=== PATIENT | female | born 1955 | race Caucasian/White ===

== ENCOUNTER 2019-12-24 11:31 | Outpatient (CLI) | payer MEDICARE, OTHER, SELFPAY ==
[2019-12-24 11:51] LABS: Basophils Absolute Auto 0.1 K/mm3 (0.0-0.1); Eosinophils Absolute Auto 0.2 K/mm3 (0-0.3); Eosinophils Percent Auto 2.8 % (0-4.4); Hematocrit 43.6 % (37.0-47.0); Hemoglobin 14.6 g/dL (12.0-15.0); Lymphocytes Absolute Auto 2.07 K/mm3 (0.9-3.2); Lymphocytes Percent Auto 33.9 % (18.3-44.2); Mean Corpuscular HGB Conc 33.5 g/dl (32-36); Mean Corpuscular Hemoglobin 32.4 pg (26-34); Mean Corpuscular Volume 96.9 fl (80-100); Mean Platelet Volume 9.4 fl (7.4-10.4); Monocytes Absolute Auto 0.6 K/mm3 (0.1-0.6); Monocytes Percent Auto 10.3 % (2.6-8.5); Neutrophils Absolute Auto 3.2 K/mm3 (1.3-6.7); Platelet Count Result 351 k/mm3 (150-375); Red Cell Distribution Width 13.1 % (11.5-14.5); White Blood Count 6.1 K/mm3 (4.5-10.0)
[2019-12-24 17:01] LABS: Alanine Aminotransferase 17 U/L (4-35); Albumin Level 4.5 g/dL (3.5-5.1); Alkaline Phosphatase 67 U/L (38-126); Aspartate Amino Transferase 24 U/L (14-36); Bilirubin,Total 0.1 mg/dL (0.2-1.3); Blood Urea Nitrogen 23 mg/dL (7-17); Calcium 9.4 mg/dL (8.4-10.2); Carbon Dioxide 29 mmol/L (22-30); Chloride 104 mmol/L (98-107); Estimated Glomerular Filt Rate > 60; Glucose 104 mg/dL (65-105); Potassium 4.4 mmol/L (3.4-5.0); Sodium 138 mmol/L (137-145)
== END 2019-12-24 11:32 | disposition home or self-care (01) ==
PROVIDERS: PCP Family Medicine; Visit Provider Internal Medicine Hematology & Oncology
DX: C50.411 Malignant neoplasm of upper-outer quadrant of right female breast (principal); Z17.0 Estrogen receptor positive status [ER+]
CPT/HCPCS: 36415; 80053; 85025

== ENCOUNTER 2020-01-17 08:13 | Outpatient (CLI) | payer MEDICARE, OTHER, SELFPAY ==
--- NOTE | ~2020-01-17 | MM_ITS ---
EXAMINATION: MM screening reva BI w sam HISTORY: Screening mammogram, history of right breast cancer TECHNIQUE: Craniocaudal and mediolateral oblique 3-D tomosynthesis images were obtained and synthetic 2-D images were generated. CAD analysis was submitted and interpreted. COMPARISON: 01/14/2019, 07/20/2018, 01/08/2018, 05/31/2017 BREAST PARENCHYMAL COMPOSITION: There are scattered areas of fibroglandular density. FINDINGS: Stable lumpectomy changes are present in the right breast. Also seen is a stable low-densit y mass in the lower inner left breast. There is no evidence of suspicious mass, calcification, or arc hitectural distortion to suggest malignancy in either breast. There has been no suspicious interval c hange. IMPRESSION: 1. No mammographic evidence of malignancy. 2. Recommend routine screening mammography in one year. BI-RADS Category 2: Benign finding(s). Reviewed, dictated and finalized at location A.
== END 2020-01-17 08:14 | disposition home or self-care (01) ==
LOC: ANHIMG 08:16
PROVIDERS: PCP Family Medicine; Visit Provider Internal Medicine Hematology & Oncology
DX: Z12.31 Encounter for screening mammogram for malignant neoplasm of breast (principal)
CPT/HCPCS: 77063; 77067

== ENCOUNTER 2020-01-18 10:08 | Emergency (ER) | payer MEDICARE, OTHER, SELFPAY ==
[2020-01-18 10:16] VITALS: BP 139/76; PULSE 89; RESP 20; TEMP 36.6; O2SAT 99
--- NOTE | 2020-01-18 10:16 | ED.FEMALEGU ---
HPI - Female Genitourinary General Chief complaint: Urogenital-Female Stated complaint: POS UTI Time Seen by Provider: 01/18/20 10:22 Source: patient and RN notes reviewed Mode of arrival: ambulatory Limitations: no limitations History of Present Illness HPI Narrative: 64-year-old female who presents to [facility] care with complaints of 3-day history of pain burning and urgency with urination. Patient states she has not taken any khov-mrh-ycvid[place] Azo, has increased oral water intake with no improvement in symptoms. Patient states no history of kidney stones in past, reports last known UTI June of 2017. Patient denies any known fevers, chills or sweats, has some suprapubic tenderness but denies any flank pain MD elicited complaint: dysuria, UTI and pelvic pain Pertinent past history: other (past UTI) Onset (ago): day(s) (3) Location of symptoms: suprapubic and urethra Severity: moderate Severity scale (1-10): 4 Quality of pain: aching Consistency: constant Vaginal discharge: none Vaginal bleeding: none Urinary symptoms: Dysuria, Urgency and Frequency Exacerbating factors: urination Relieving factors: none Associated symptoms: abdominal pain (suprapubic pressure) Treatment prior to arrival: other (increase fluids) Patient : No Related Data Home Medications Medication Instructions Recorded Confirmed anastrozole 1 mg tablet 1 mg PO DAILY 07/16/19 01/18/20 Allergies Allergy/AdvReac Type Severity Reaction Status Date / Time No Known Allergies Allergy Verified 07/16/19 13:58 Review of Systems Review of Systems: Narrative: CONSTITUTIONAL: Denies fever, chills, or sweats. EYES: Denies visual changes, redness, or discharge. ENT: Denies rhinorrhea, congestion, sore throat, or otalgia. CARDIOVASCULAR: Denies chest pain, palpitations, or edema. RESPIRATORY: Denies cough or dyspnea. GASTROINTESTINAL: states some suprapubic abdominal pain, no nausea, vomiting, or diarrhea. GENITOURINARY: Positive dysuria or hematuria. SKIN: Denies rash or itching. MUSCULOSKELETAL: Denies back pain, joint pain, or myalgia. NEUROLOGIC: Denies headache, numbness, or weakness. PSYCHIATRIC: Denies anxiety or depression. All systems reviewed & are unremarkable except as noted in HPI and below PMFSH Past Medical History Medical History Breast cancer Surgical History Surgical History History of lumpectomy 2017 History of total right hip replacement 2017 Hx of removal of ovary 1989 Family History Family History Mother Family history of thyroid disease Father Family history of blood dyscrasia Social History Social History Smoking status: Light tobacco smoker Second hand tobacco smoke exposure: Yes Alcohol intake: current Additional living arrangements comments: Rigoberto Roche Gender identity (if verbalized by the patient): Female Comments At time of signature, agree with nursing past medical, surgical, social and family history. There is no relevant family history pertinent to the presenting complaint Exam Narrative: Exam Narrative: GENERAL: Well-appearing, well-nourished, and in no acute distress. HEAD: Normocephalic, atraumatic. EYES: PERRLA and EOMI. ENT: Nares clear, no rhinorrhea or epistaxis. Mucous membranes moist. NECK: Supple.no lymphadenopathy CHEST: Clear to auscultation. No respiratory distress. HEART: Regular rate and rhythm. No murmur heard. Normal peripheral pulses. ABDOMEN: Soft,tender to suprapubic abdomen, nondistended, normal active bowel sounds. EXTREMITIES: Normal range of motion. No edema. SKIN: Warm, dry, no rash. NEURO: No focal deficits. Alert and oriented x3. Course Vital Signs Vital signs: Vital Signs Temperature 36.6 C 01/18/20 10:16 Pulse Rate 89 07
== END 2020-01-18 10:42 | disposition home or self-care (01) ==
PROVIDERS: Emergency Provider Registered Nurse; PCP Family Medicine
DX: N39.0 Urinary tract infection, site not specified (principal); F17.200 Nicotine dependence, unspecified, uncomplicated; Z85.3 Personal history of malignant neoplasm of breast
CPT/HCPCS: 87077; 87086; 87088; 87186; 99213; G0463

== ENCOUNTER 2020-07-13 09:50 | Outpatient (CLI) | payer MEDICARE, SELFPAY ==
[2020-07-13 10:11] LABS: Basophils Absolute Auto 0.1 K/mm3 (0.0-0.1); Basophils Percent Auto 0.7 % (0.2-1.2); Eosinophils Absolute Auto 0.1 K/mm3 (0-0.3); Hematocrit 46.2 % (37.0-47.0); Hemoglobin 15.4 g/dL (12.0-15.0); Immature Granulocyte Absolute 0.02 K/mm3 (0.00-0.031); Immature Granulocyte Percent A 0.2 % (0-0.5); Lymphocytes Absolute Auto 1.83 K/mm3 (0.9-3.2); Lymphocytes Percent Auto 22.3 % (18.3-44.2); Mean Corpuscular HGB Conc 33.3 g/dl (32-36); Mean Corpuscular Hemoglobin 32.2 pg (26-34); Mean Corpuscular Volume 96.5 fl (80-100); Mean Platelet Volume 9.2 fl (7.4-10.4); Monocytes Absolute Auto 0.5 K/mm3 (0.1-0.6); Monocytes Percent Auto 6.6 % (2.6-8.5); Neutrophils Absolute Auto 5.7 K/mm3 (1.3-6.7); Neutrophils Percent Auto 69.2 % (45.5-73.1); Platelet Count Result 345 k/mm3 (150-375); Red Blood Count 4.79 M/mm3 (4.2-5.4); Red Cell Distribution Width 12.6 % (11.5-14.5); White Blood Count 8.2 K/mm3 (4.5-10.0)
[2020-07-13 11:34] LABS: Alanine Aminotransferase 15 U/L (4-35); Albumin Level 4.5 g/dL (3.5-5.1); Alkaline Phosphatase 81 U/L (38-126); Anion Gap 8 mmol/L (8-16); Aspartate Amino Transferase 24 U/L (14-36); Bilirubin,Total 0.5 mg/dL (0.2-1.3); Blood Urea Nitrogen 18 mg/dL (7-17); Calcium 9.6 mg/dL (8.4-10.2); Carbon Dioxide 29 mmol/L (22-30); Chloride 102 mmol/L (98-107); Estimated Glomerular Filt Rate > 60; Glucose 102 mg/dL (65-105); Potassium 4.3 mmol/L (3.4-5.0); Sodium 139 mmol/L (137-145)
[2020-07-17 05:44] LABS: CA 27.29 9 U/mL (<38)
== END 2020-07-13 09:51 | disposition home or self-care (01) ==
LOC: ANHLAB 09:54
PROVIDERS: PCP Family Medicine; Visit Provider Internal Medicine Hematology & Oncology
DX: C50.411 Malignant neoplasm of upper-outer quadrant of right female breast (principal); Z17.0 Estrogen receptor positive status [ER+]
CPT/HCPCS: 36415; 80053; 85025; 86300

== ENCOUNTER 2021-01-18 09:56 | Outpatient (CLI) | payer MEDICARE, SELFPAY ==
--- NOTE | ~2021-01-18 | MM_ITS ---
EXAMINATION: MM screening [facility] BI w sam HISTORY: Screening TECHNIQUE: Craniocaudal and mediolateral oblique 3-D tomosynthesis images were obtained and synthetic 2-D images were generated. CAD analysis was submitted and interpreted. COMPARISON: Comparison to multiple prior studies sequentially, with oldest reviewed study dated 05/04. BREAST PARENCHYMAL COMPOSITION: There are scattered areas of fibroglandular density. FINDINGS: Stable benign-appearing mass in the lower inner quadrant of the left breast. There is no ev idence of suspicious mass, calcification, or architectural distortion to suggest malignancy in either breast. There has been no suspicious interval change. IMPRESSION: 1. No mammographic evidence of malignancy. 2. Recommend routine screening mammography in one year. BI-RADS Category 2: Benign finding(s). Reviewed, dictated and finalized at location A.
== END 2021-01-18 09:57 | disposition home or self-care (01) ==
PROVIDERS: PCP Family Medicine; Visit Provider Internal Medicine Hematology & Oncology
DX: Z12.31 Encounter for screening mammogram for malignant neoplasm of breast (principal)
CPT/HCPCS: 77063; 77067

== ENCOUNTER 2021-01-18 10:27 | Outpatient (CLI) | payer MEDICARE, SELFPAY ==
[2021-01-18 10:48] LABS: Basophils Absolute Auto 0.1 K/mm3 (0.0-0.1); Basophils Percent Auto 0.8 % (0.2-1.2); Eosinophils Absolute Auto 0.2 K/mm3 (0-0.3); Eosinophils Percent Auto 2.9 % (0-4.4); Hematocrit 42.6 % (37.0-47.0); Hemoglobin 14.3 g/dL (12.0-15.0); Immature Granulocyte Absolute 0.02 K/mm3 (0.00-0.031); Immature Granulocyte Percent A 0.3 % (0-0.5); Lymphocytes Absolute Auto 1.99 K/mm3 (0.9-3.2); Lymphocytes Percent Auto 32.3 % (18.3-44.2); Mean Corpuscular HGB Conc 33.6 g/dl (32-36); Mean Corpuscular Hemoglobin 32.1 pg (26-34); Mean Corpuscular Volume 95.7 fl (80-100); Mean Platelet Volume 9.4 fl (7.4-10.4); Monocytes Absolute Auto 0.5 K/mm3 (0.1-0.6); Monocytes Percent Auto 7.3 % (2.6-8.5); Neutrophils Absolute Auto 3.5 K/mm3 (1.3-6.7); Neutrophils Percent Auto 56.4 % (45.5-73.1); Platelet Count Result 335 k/mm3 (150-375); Red Blood Count 4.45 M/mm3 (4.2-5.4); White Blood Count 6.2 K/mm3 (4.5-10.0)
[2021-01-18 11:12] LABS: Alanine Aminotransferase 14 U/L (4-35); Albumin Level 4.6 g/dL (3.5-5.1); Alkaline Phosphatase 70 U/L (38-126); Anion Gap 10 mmol/L (8-16); Aspartate Amino Transferase 25 U/L (14-36); Bilirubin,Total 0.6 mg/dL (0.2-1.3); Blood Urea Nitrogen 17 mg/dL (7-17); Calcium 10.2 mg/dL (8.4-10.2); Carbon Dioxide 29 mmol/L (22-30); Chloride 101 mmol/L (98-107); Estimated Glomerular Filt Rate > 60; Glucose 95 mg/dL (65-110); Potassium 4.5 mmol/L (3.4-5.0); Sodium 140 mmol/L (137-145)
[2021-01-22 05:24] LABS: CA 15-3 2 U/mL (<32)
== END 2021-01-18 10:28 | disposition home or self-care (01) ==
LOC: ANHLAB 10:31
PROVIDERS: PCP Family Medicine; Visit Provider Internal Medicine Hematology & Oncology
DX: C50.411 Malignant neoplasm of upper-outer quadrant of right female breast (principal); Z17.0 Estrogen receptor positive status [ER+]
CPT/HCPCS: 36415; 77063; 77067; 80053; 85025; 86300

== ENCOUNTER 2021-07-21 09:23 | Outpatient (CLI) | payer MEDICARE, SELFPAY ==
[2021-07-21 09:54] LABS: Basophils Absolute Auto 0.1 K/mm3 (0.0-0.1); Eosinophils Absolute Auto 0.2 K/mm3 (0-0.3); Eosinophils Percent Auto 3.3 % (0-4.4); Hemoglobin 14.7 g/dL (12.0-15.0); Immature Granulocyte Absolute 0.02 K/mm3 (0.00-0.031); Immature Granulocyte Percent A 0.3 % (0-0.5); Lymphocytes Percent Auto 35.8 % (18.3-44.2); Mean Corpuscular HGB Conc 32.7 g/dl (32-36); Mean Corpuscular Hemoglobin 32.6 pg (26-34); Mean Corpuscular Volume 99.8 fl (80-100); Mean Platelet Volume 9.6 fl (7.4-10.4); Monocytes Absolute Auto 0.6 K/mm3 (0.1-0.6); Monocytes Percent Auto 9.6 % (2.6-8.5); Neutrophils Absolute Auto 3.1 K/mm3 (1.3-6.7); Platelet Count Result 313 k/mm3 (150-375); Red Blood Count 4.51 M/mm3 (4.2-5.4); Red Cell Distribution Width 12.9 % (11.5-14.5); White Blood Count 6.1 K/mm3 (4.5-10.0)
[2021-07-21 15:11] LABS: Alanine Aminotransferase 15 U/L (4-35); Albumin Level 4.5 g/dL (3.5-5.1); Alkaline Phosphatase 69 U/L (38-126); Anion Gap 10 mmol/L (8-16); Aspartate Amino Transferase 66 U/L (14-36); Bilirubin,Total 0.6 mg/dL (0.2-1.3); Blood Urea Nitrogen 19 mg/dL (7-17); Calcium 9.6 mg/dL (8.4-10.2); Carbon Dioxide 29 mmol/L (22-30); Chloride 99 mmol/L (98-107); Estimated Glomerular Filt Rate > 60; Glucose 97 mg/dL (65-110); Potassium 4.1 mmol/L (3.4-5.0); Sodium 138 mmol/L (137-145)
[2021-07-24 05:48] LABS: CA 15-3 4 U/mL (<32)
== END 2021-07-21 09:24 | disposition home or self-care (01) ==
PROVIDERS: PCP Family Medicine; Visit Provider Internal Medicine Hematology & Oncology
DX: C50.411 Malignant neoplasm of upper-outer quadrant of right female breast (principal); Z17.0 Estrogen receptor positive status [ER+]
CPT/HCPCS: 36415; 80053; 85025; 86300

== ENCOUNTER 2022-01-20 09:05 | Outpatient (CLI) | payer MEDICARE, SELFPAY ==
[2022-01-20 09:29] LABS: Basophils Absolute Auto 0.1 K/mm3 (0.0-0.1); Basophils Percent Auto 1.1 % (0.2-1.2); Eosinophils Absolute Auto 0.4 K/mm3 (0-0.3); Eosinophils Percent Auto 5.4 % (0-4.4); Hematocrit 41.9 % (37.0-47.0); Hemoglobin 13.9 g/dL (12.0-15.0); Immature Granulocyte Absolute 0.01 K/mm3 (0.00-0.031); Immature Granulocyte Percent A 0.2 % (0-0.5); Lymphocytes Absolute Auto 2.19 K/mm3 (0.9-3.2); Lymphocytes Percent Auto 33.6 % (18.3-44.2); Mean Corpuscular HGB Conc 33.2 g/dl (32-36); Mean Corpuscular Volume 96.5 fl (80-100); Mean Platelet Volume 9.3 fl (7.4-10.4); Monocytes Absolute Auto 0.7 K/mm3 (0.1-0.6); Monocytes Percent Auto 10.4 % (2.6-8.5); Neutrophils Absolute Auto 3.2 K/mm3 (1.3-6.7); Neutrophils Percent Auto 49.3 % (45.5-73.1); Platelet Count Result 330 k/mm3 (150-375); Red Blood Count 4.34 M/mm3 (4.2-5.4); Red Cell Distribution Width 12.8 % (11.5-14.5); White Blood Count 6.5 K/mm3 (4.5-10.0)
[2022-01-20 10:19] LABS: Alanine Aminotransferase 14 U/L (6-35); Albumin Level 4.4 g/dL (3.5-5.1); Alkaline Phosphatase 63 U/L (38-126); Anion Gap 5 mmol/L (8-16); Aspartate Amino Transferase 27 U/L (14-36); Bilirubin,Total 0.5 mg/dL (0.2-1.3); Blood Urea Nitrogen 18 mg/dL (7-17); Calcium 9.2 mg/dL (8.4-10.2); Carbon Dioxide 29 mmol/L (22-30); Chloride 104 mmol/L (98-107); Estimated Glomerular Filt Rate > 60; Glucose 100 mg/dL (65-110); Potassium 4.5 mmol/L (3.4-5.0); Sodium 138 mmol/L (137-145)
[2022-01-23 12:57] LABS: CA 15-3 5 U/mL (<32)
== END 2022-01-20 09:06 | disposition home or self-care (01) ==
LOC: ANHLAB 09:07
PROVIDERS: PCP Family Medicine; Visit Provider Internal Medicine Hematology & Oncology
DX: C50.411 Malignant neoplasm of upper-outer quadrant of right female breast (principal); Z17.0 Estrogen receptor positive status [ER+]
CPT/HCPCS: 36415; 80053; 85025; 86300

== ENCOUNTER 2022-01-20 09:36 | Outpatient (CLI) | payer MEDICARE, SELFPAY ==
--- NOTE | ~2022-01-20 | MM_ITS ---
EXAMINATION: MM screening reva BI w sam HISTORY: Screening TECHNIQUE: Craniocaudal and mediolateral oblique 3-D tomosynthesis images were obtained and synthetic 2-D images were generated. CAD analysis was submitted and interpreted. COMPARISON: Comparison to multiple prior studies sequentially, with oldest reviewed study dated 03/2018. BREAST PARENCHYMAL COMPOSITION: There are scattered areas of fibroglandular density. FINDINGS: The right breast is stable without evidence for malignancy. There are developing nodules in the upper inner and lower inner quadrants of the left breast. IMPRESSION: 1. Developing left breast masses. 2. Additional mammographic views and possible breast ultrasound are recommended. BI-RADS Category 0: Incomplete: Needs additional imaging evaluation. Reviewed, dictated and finalized at location L. IMPRESSION: 1. Developing left breast masses. 2. Additional mammographic views and possible breast ultrasound are recommended . BI-RADS Category 0: Incomplete: Needs additional imaging evaluation.
== END 2022-01-20 09:37 | disposition home or self-care (01) ==
PROVIDERS: PCP Family Medicine; Visit Provider Internal Medicine Hematology & Oncology
DX: Z12.31 Encounter for screening mammogram for malignant neoplasm of breast (principal); R92.8 Other abnormal and inconclusive findings on diagnostic imaging of breast
CPT/HCPCS: 36415; 77063; 77067; 80053; 85025; 86300

== ENCOUNTER 2022-02-07 12:20 | Outpatient (CLI) | payer MEDICARE, SELFPAY ==
--- NOTE | ~2022-02-07 | MMUS_ITS ---
EXAMINATION: MM diagnostic reva LT w sam, US breast LT limited HISTORY: Right breast masses on screening mammogram TECHNIQUE: Additional 3-D tomosynthesis images of the left breast were performed and synthetic 2-D im ages were generated. CAD analysis was submitted and interpreted. High resolution limited left breast ultrasound was performed. COMPARISON: 01/20/2022, 01/18/2021, 01/17/2020 FINDINGS: MAMMOGRAPHIC FINDINGS: A mass in the lower inner breast has a stable appearance when compared to prior mammograms. There is a 6 mm oval, obscured, equal density mass in the anterior third of the breast at the 12:00 location 3 cm from the nipple. ULTRASOUND: There is a 6 mm x 4 mm cyst with thin septation at the 11:00 location 1 cm from the nipple. There is a 5 mm round cyst at the 12:00 location 2 cm from the nipple. IMPRESSION: 1. No mammographic or sonographic evidence of malignancy. 2. Recommend routine screening mammography in one year. BI-RADS Category 2: Benign finding(s). Reviewed, dictated and finalized at location A. IMPRESSION: 1. No mammographic or sonographic evidence of malignancy. 2. Recommend routine screening mammography in one year. BI-RADS Category 2: Benign finding(s).
== END 2022-02-07 12:21 | disposition home or self-care (01) ==
PROVIDERS: PCP Family Medicine; Visit Provider Internal Medicine Hematology & Oncology
DX: R92.8 Other abnormal and inconclusive findings on diagnostic imaging of breast (principal)
CPT/HCPCS: 76642; 77061; 77065; G0279

== ENCOUNTER 2022-07-20 10:58 | Outpatient (CLI) | payer MEDICARE, SELFPAY ==
[2022-07-20 11:09] LABS: Basophils Absolute Auto 0.1 K/mm3 (0.0-0.1); Eosinophils Absolute Auto 0.2 K/mm3 (0-0.3); Eosinophils Percent Auto 3.7 % (0-4.4); Hematocrit 44.2 % (37.0-47.0); Hemoglobin 15.1 g/dL (12.0-15.0); Immature Granulocyte Absolute 0.02 K/mm3 (0.00-0.031); Immature Granulocyte Percent A 0.3 % (0-0.5); Lymphocytes Percent Auto 36.7 % (18.3-44.2); Mean Corpuscular HGB Conc 34.2 g/dl (32-36); Mean Corpuscular Volume 96.5 fl (80-100); Mean Platelet Volume 9.2 fl (7.4-10.4); Monocytes Absolute Auto 0.5 K/mm3 (0.1-0.6); Monocytes Percent Auto 8.5 % (2.6-8.5); Neutrophils Absolute Auto 3.1 K/mm3 (1.3-6.7); Neutrophils Percent Auto 49.8 % (45.5-73.1); Platelet Count Result 370 k/mm3 (150-375); Red Blood Count 4.58 M/mm3 (4.2-5.4); Red Cell Distribution Width 12.6 % (11.5-14.5); White Blood Count 6.3 K/mm3 (4.5-10.0)
[2022-07-20 13:54] LABS: Alanine Aminotransferase 20 U/L (6-35); Albumin Level 4.6 g/dL (3.5-5.1); Alkaline Phosphatase 83 U/L (38-126); Anion Gap 7 mmol/L (8-16); Aspartate Amino Transferase 26 U/L (14-36); Bilirubin,Total 0.4 mg/dL (0.2-1.3); Blood Urea Nitrogen 15 mg/dL (7-17); Calcium 9.5 mg/dL (8.4-10.2); Carbon Dioxide 30 mmol/L (22-30); Chloride 98 mmol/L (98-107); Estimated Glomerular Filt Rate > 60; Glucose 107 mg/dL (65-110); Potassium 3.8 mmol/L (3.4-5.0); Sodium 135 mmol/L (137-145)
[2022-07-25 19:29] LABS: CA 15-3 5 U/mL (<32)
== END 2022-07-20 10:59 | disposition home or self-care (01) ==
LOC: ANHLAB 10:59
PROVIDERS: PCP Family Medicine; Visit Provider Internal Medicine Hematology & Oncology
DX: C50.411 Malignant neoplasm of upper-outer quadrant of right female breast (principal); Z17.0 Estrogen receptor positive status [ER+]
CPT/HCPCS: 36415; 80053; 85025; 86300

== ENCOUNTER 2023-02-09 14:35 | Outpatient (CLI) | payer MEDICARE, SELFPAY ==
--- NOTE | ~2023-02-09 | MM_ITS ---
EXAMINATION: MM screening reva BI w sam HISTORY: Screening mammogram, history of right breast cancer TECHNIQUE: Craniocaudal and mediolateral oblique 3-D tomosynthesis images were obtained and synthetic 2-D images were generated. CAD analysis was submitted and interpreted. COMPARISON: 02/07/2022, 01/20/2022, 01/18/2021 BREAST PARENCHYMAL COMPOSITION: There are scattered areas of fibroglandular density. FINDINGS: No suspicious mass, calcification, or architectural distortion are identified in either claudette ast to suggest malignancy. There has been no suspicious interval change. IMPRESSION: 1. No mammographic evidence of malignancy. 2. Recommend routine screening mammography in one year. BI-RADS Category 1: Negative Reviewed, dictated and finalized at location A.
== END 2023-02-09 14:36 | disposition home or self-care (01) ==
PROVIDERS: PCP Family Medicine; Visit Provider Internal Medicine Hematology & Oncology
DX: Z12.31 Encounter for screening mammogram for malignant neoplasm of breast (principal)
CPT/HCPCS: 36415; 77063; 77067; 80053; 85025; 86300

== ENCOUNTER 2023-02-09 14:55 | Outpatient (CLI) | payer MEDICARE, SELFPAY ==
[2023-02-09 15:12] LABS: Basophils Absolute Auto 0.1 K/mm3 (0.0-0.1); Basophils Percent Auto 1.3 % (0.2-1.2); Eosinophils Absolute Auto 0.2 K/mm3 (0-0.3); Eosinophils Percent Auto 3.7 % (0-4.4); Hemoglobin 15.1 g/dL (12.0-15.0); Immature Granulocyte Absolute 0.01 K/mm3 (0.00-0.031); Immature Granulocyte Percent A 0.2 % (0-0.5); Lymphocytes Absolute Auto 2.37 K/mm3 (0.9-3.2); Lymphocytes Percent Auto 37.8 % (18.3-44.2); Mean Corpuscular HGB Conc 34.3 g/dl (32-36); Mean Corpuscular Hemoglobin 32.5 pg (26-34); Mean Corpuscular Volume 94.8 fl (80-100); Mean Platelet Volume 9.2 fl (7.4-10.4); Monocytes Absolute Auto 0.6 K/mm3 (0.1-0.6); Platelet Count Result 374 k/mm3 (150-375); Red Blood Count 4.64 M/mm3 (4.2-5.4); White Blood Count 6.3 K/mm3 (4.5-10.0)
[2023-02-09 16:26] LABS: Alanine Aminotransferase 20 U/L (6-35); Albumin Level 4.4 g/dL (3.5-5.1); Alkaline Phosphatase 59 U/L (38-126); Anion Gap 3 mmol/L (8-16); Aspartate Amino Transferase 26 U/L (14-36); Bilirubin,Total 0.3 mg/dL (0.2-1.3); Blood Urea Nitrogen 18 mg/dL (7-17); Calcium 9.3 mg/dL (8.4-10.2); Carbon Dioxide 29 mmol/L (22-30); Chloride 102 mmol/L (98-107); Estimated Glomerular Filt Rate > 60; Glucose 92 mg/dL (65-110); Sodium 134 mmol/L (137-145)
[2023-02-15 04:47] LABS: CA 15-3 5 U/mL (<32)
== END 2023-02-09 14:56 | disposition home or self-care (01) ==
LOC: ANHLAB 14:58
PROVIDERS: PCP Family Medicine; Visit Provider Internal Medicine Hematology & Oncology
DX: C50.411 Malignant neoplasm of upper-outer quadrant of right female breast (principal); Z17.0 Estrogen receptor positive status [ER+]
CPT/HCPCS: 36415; 80053; 85025; 86300

== ENCOUNTER 2023-10-12 10:28 | Outpatient (CLI) | payer MEDICARE, SELFPAY ==
[2023-10-12 10:41] LABS: Basophils Absolute Auto 0.1 K/mm3 (0.0-0.1); Basophils Percent Auto 0.9 % (0.2-1.2); Eosinophils Absolute Auto 0.2 K/mm3 (0-0.3); Hematocrit 44.9 % (37.0-47.0); Hemoglobin 15.2 g/dL (12.0-15.0); Lymphocytes Absolute Auto 2.23 K/mm3 (0.9-3.2); Lymphocytes Percent Auto 33.2 % (18.3-44.2); Mean Corpuscular HGB Conc 33.9 g/dl (32-36); Mean Corpuscular Hemoglobin 32.5 pg (26-34); Mean Corpuscular Volume 95.9 fl (80-100); Mean Platelet Volume 9.3 fl (7.4-10.4); Monocytes Absolute Auto 0.6 K/mm3 (0.1-0.6); Monocytes Percent Auto 8.8 % (2.6-8.5); Neutrophils Absolute Auto 3.6 K/mm3 (1.3-6.7); Neutrophils Percent Auto 54.1 % (45.5-73.1); Platelet Count Result 382 k/mm3 (150-375); Red Blood Count 4.68 M/mm3 (4.2-5.4); Red Cell Distribution Width 13.3 % (11.5-14.5); White Blood Count 6.7 K/mm3 (4.5-10.0)
[2023-10-12 12:07] LABS: Alanine Aminotransferase 19 U/L (6-35); Albumin Level 4.7 g/dL (3.5-5.1); Alkaline Phosphatase 75 U/L (38-126); Anion Gap 5 mmol/L (4-12); Aspartate Amino Transferase 26 U/L (14-36); Bilirubin,Total 0.5 mg/dL (0.2-1.3); Blood Urea Nitrogen 17 mg/dL (7-17); Calcium 9.8 mg/dL (8.4-10.2); Carbon Dioxide 29 mmol/L (22-30); Chloride 105 mmol/L (98-107); Estimated Glomerular Filt Rate > 60; Glucose 103 mg/dL (65-110); Potassium 4.2 mmol/L (3.4-5.0); Sodium 139 mmol/L (137-145)
[2023-10-14 04:55] LABS: CA 15-3 5 U/mL (<32)
== END 2023-10-12 10:29 | disposition home or self-care (01) ==
PROVIDERS: PCP Family Medicine; Visit Provider Internal Medicine Hematology & Oncology
DX: C50.411 Malignant neoplasm of upper-outer quadrant of right female breast (principal); Z17.0 Estrogen receptor positive status [ER+]
CPT/HCPCS: 36415; 80053; 85025; 86300

== ENCOUNTER 2024-02-28 14:02 | Outpatient (CLI) | payer MEDICARE, SELFPAY ==
[2024-02-28 15:38] LABS: Vitamin D 25 Hydroxy 40.8 ng/mL
== END 2024-02-28 14:03 | disposition home or self-care (01) ==
LOC: ANHLAB 14:05
PROVIDERS: PCP Family Medicine; Visit Provider Orthopaedic Surgery
DX: E55.9 Vitamin D deficiency, unspecified (principal)
CPT/HCPCS: 36415; 82306

== ENCOUNTER 2024-03-26 08:34 | Outpatient (CLI) | payer MEDICARE, SELFPAY ==
--- NOTE | ~2024-03-26 | DEXA_ITS ---
Bone Density Report Name: TIEN AMAYA Age: 68 Sex: Female Ethnicity: White Date of : 1955 Indication: postmenopausal; screening for osteoporosis; cancer; Referring Provider: DONAVON RODGERS Study: Bone densitometry was performed. Exam Date: March 26, 2024 Accession number: [id number] Bone Density: Region BMD T-score Z-score Classification AP Spine(L1-L4) 0.921 -1.1 0.9 Osteopenia Femoral Neck (Left) 0.611 -2.1 -0.4 Osteopenia Total Hip (Left) 0.680 -2.1 -0.7 Osteopenia World Health Organization criteria for BMD impression classify patients as: Normal (T-score at or above -1.0), Osteopenia (T-score between -1.0 and -2.5), or Osteoporosis (T-score at or below -2.5). 10-year Fracture Risk(1): Major Osteoporotic Fracture 13% Hip Fracture 4.2% Reported Risk Factors: [place] (), Neck BMD=0.611, BMI=23.6, smoking (1) FRAX(R) Version 3.08. Fracture probability calculated for an untreated patient. Fracture probability may be lower if the patient has received treatment. Clinical Information Provided by Patient: Smokes Has used the following medications: Vitamin D, Calcium Has the following medical conditions: Cancer Patient maximum height was 67.5 Menopause Age: 39 No regular weight bearing exercise Drinks caffeinated beverages Onset of menses at age 11 Number of children 2 Impression: The patient has low bone mass, based on the Left Total Hip T-score. The patient has an estimated ten-year risk of hip fracture of 4.2% and an estimated ten-year risk of major fracture of 13%, based on the WHO FRAX algorithm. The patient has risk factors, including: smoking. Discussion: BONE DENSITY IS LOW AT ONE OR MORE SKELETAL SITES. THE PATIENT'S BMD AND CLINICAL RISK FACTORS CONTRIBUTE TO THIS PATIENT'S INCREASED RISK OF FRACTURE. This patient's lowest T-score is low at one or more skeletal sites. It meets the World Health Organization's (WHO) criteria for ?low bone mass? (T-score between -1.0 and -2.5). The patient's 10-year risk of hip fracture as calculated by FRAX exceeds the threshold where pharmacological therapy is recommended by the National Osteoporosis Foundation (NOF). However, all treatment decisions require clinical judgment and consideration of individual patient factors, including patient preferences, comorbidities, previous drug use, risk factors not captured in the FRAX model (e.g., frailty, falls, vitamin D deficiency, increased bone turnover, interval significant decline in bone density) and possible under or overestimation of fracture risk by FRAX. The patient should follow a healthful lifestyle (good nutrition with adequate calcium and vitamin D, and appropriate weight-bearing exercise). Follow-Up: Consider a repeat BMD and Vertebral Fracture Assessment (VFA) exam in 2 years or sooner if medically necessary,
--- NOTE | ~2024-03-26 | MM_ITS ---
EXAMINATION: MM screening reva BI w sam HISTORY: Screening TECHNIQUE: Craniocaudal and mediolateral oblique 3-D tomosynthesis images were obtained and synthetic 2-D images were generated. CAD analysis was submitted and interpreted. COMPARISON: Comparison to multiple prior studies sequentially, with oldest reviewed study dated 01/14. BREAST PARENCHYMAL COMPOSITION: Not dense: There are scattered areas of fibroglandular density. FINDINGS: Stable lumpectomy changes in the right breast. There are developing nodular asymmetries in the upper central aspect of the left breast. IMPRESSION: 1. Developing left breast nodular asymmetries. 2. Additional mammographic views and possible breast ultrasound are recommended. BI-RADS Category 0: Incomplete: Needs additional imaging evaluation. Reviewed, dictated and finalized at location B. IMPRESSION: 1. Developing left breast nodular asymmetries. 2. Additional mammographic views and possible breast ultrasound are recommended . BI-RADS Category 0: Incomplete: Needs additional imaging evaluation.
== END 2024-03-26 08:35 | disposition home or self-care (01) ==
PROVIDERS: PCP Family Medicine; Visit Provider Internal Medicine Hematology & Oncology
DX: Z12.31 Encounter for screening mammogram for malignant neoplasm of breast (principal); M85.89 Other specified disorders of bone density and structure, multiple sites; R92.8 Other abnormal and inconclusive findings on diagnostic imaging of breast; M85.88 Other specified disorders of bone density and structure, other site; M85.852 Other specified disorders of bone density and structure, left thigh
CPT/HCPCS: 77063; 77067; 77080

== ENCOUNTER 2024-03-28 09:53 | Outpatient (CLI) | payer MEDICARE, SELFPAY ==
--- NOTE | 2024-03-28 10:47 | ECG_ITS ---
Test Date: 2024-03-28 10:57:33 Measurements Intervals Jbphh Rate: 64 P: 79 NJ: 124 QRS: 56 QRSD: 84 T: 37 QT: 405 QTc: 419 Interpretive Statements SINUS RHYTHM BASELINE ARTIFACT- I, II, III, AVR, AVL, AVF, V1-V6 NORMAL ECG No previous ECG available for comparison Electronically Signed On 03-28-2024 11:13:52 CDT by Silverio Jimenez D.O.
[2024-03-28 11:17] LABS: Basophils Absolute Auto 0.1 K/mm3 (0.0-0.1); Basophils Percent Auto 0.6 % (0.2-1.2); Eosinophils Absolute Auto 0.2 K/mm3 (0-0.3); Eosinophils Percent Auto 1.9 % (0-4.4); Hematocrit 42.5 % (37.0-47.0); Hemoglobin 14.2 g/dL (12.0-15.0); Immature Granulocyte Absolute 0.02 K/mm3 (0.00-0.031); Immature Granulocyte Percent A 0.2 % (0-0.5); Lymphocytes Absolute Auto 1.79 K/mm3 (0.9-3.2); Lymphocytes Percent Auto 18.9 % (18.3-44.2); Mean Corpuscular HGB Conc 33.4 g/dl (32-36); Mean Corpuscular Hemoglobin 32.3 pg (26-34); Mean Corpuscular Volume 96.6 fl (80-100); Mean Platelet Volume 9.6 fl (7.4-10.4); Monocytes Absolute Auto 0.8 K/mm3 (0.1-0.6); Monocytes Percent Auto 8.5 % (2.6-8.5); Neutrophils Absolute Auto 6.6 K/mm3 (1.3-6.7); Neutrophils Percent Auto 69.9 % (45.5-73.1); Platelet Count Result 366 k/mm3 (150-375); Red Cell Distribution Width 13.1 % (11.5-14.5); White Blood Count 9.5 K/mm3 (4.5-10.0)
[2024-03-28 11:21] LABS: Albumin Level 4.4 g/dL (3.5-5.1); Anion Gap 8 mmol/L (4-12); Blood Urea Nitrogen 18 mg/dL (7-17); Calcium 9.4 mg/dL (8.4-10.2); Carbon Dioxide 27 mmol/L (22-30); Chloride 103 mmol/L (98-107); Estimated Glomerular Filt Rate > 60; Glucose 99 mg/dL (65-110); Potassium 4.3 mmol/L (3.4-5.0); Sodium 138 mmol/L (137-145)
[2024-03-28 11:51] LABS: Urine Cotinine NEGATIVE
== END 2024-03-28 09:54 | disposition home or self-care (01) ==
LOC: ANHSURGERY 09:58
PROVIDERS: PCP Family Medicine; Visit Provider Orthopaedic Surgery
DX: Z01.818 Encounter for other preprocedural examination (principal); M16.12 Unilateral primary osteoarthritis, left hip
CPT/HCPCS: 80048; 80307; 82040; 83036; 85025; 87081; 93005

== ENCOUNTER 2024-04-15 00:42 | Day surgery (SDC) | payer MEDICARE, SELFPAY ==
[2024-03-28 10:04] VITALS: BMI 24.1
--- NOTE | 2024-03-28 10:28 | PC.NURSE ---
Report to the Outpatient Waiting Room, entrance under the green pavilion located off [facility], at time 6 AM on date 04/15/24 . Planned Procedure Time: _7:30 AM .? Time changes happen often and if your time is changed the preop area will call you the afternoon before. - You and your visitor will be asked to self-screen and do not enter if you have any COVID symptoms. Please call surgeon if you need to reschedule. - A mask is optional within the hospital at this time. Patients may have clear liquids (water, carbonated beverages, clear teas, apple juice) until 3 hours prior to surgery ( 4:30 AM)with a maximum of 20 ounces. - No food from midnight until time of surgery and no smoking - Infants may have breast milk until 4 hours before surgery, infant formula 6 hours prior to surgery. - Children will be allowed to drink immediately following surgery.? If applicable, please bring a bottle or sippy cup to assist with drinking. Juice, water, soda, and popsicles are readily available.? For infants on formula, please bring formula the day of surgery.? Pacifiers are allowed. Take only the following medications with a SIP of water on the morning of surgery: _NONE DO NOT STOP ANY OF YOUR OTHER PRESCRIPTION MEDICATIONS PRIOR TO SURGERY EXCEPT THE FOLLOWING Medications to discontinue per physician __HOLD ALEVE 7 DAYS PRE OP PER DR FOREMAN .LAST DOSE04/07/24 MAY TAKE TYLENOL IF NEEDED FOR PAIN. HOLD ALL VITAMINS 3 DAYS PRE OP.LAST DOSE04/11 24 Please no make-up, nail lebanese, hairspray, perfume, deodorant, or body powder the day of surgery.? No jewelry (including any body piercings) or valuables the day of surgery, leave them at home.? Please take a shower or bath the night before, or the morning of, surgery with an antibacterial soap.? Wear comfortable, loose fitting clothing.? Children are encouraged to wear pajamas. - Jewelry must be removed prior to entering the operating room.? Rings and piercings that are not removed may be cut off. - The hospital will not accept responsibility for valuables.? - Please leave all valuables, including medications, at home the day of surgery. If you are going home after surgery, a licensed truck driver teamster must drive you home.? - NO public transportation without another adult if you receive anesthesia. - We recommend that an adult stay with you for 24 hours following discharge. - We also recommend that you do not drive, make important decision, drink alcoholic beverages, or take any drugs that were not prescribed by your health care provider for at least 24 hours after your discharge time. Follow any additional instructions given to you from your surgeon. VERBAL AND WRITTEN instructions given to _PATIENT and asked if any additional questions and then verbalized understanding. Patient advised to call surgeon office or pre surgery nurse liaison [phone] if any additional questions.
[2024-03-28 10:47] VITALS: BP 127/95; PULSE 70; RESP 18; TEMP 36.8; O2SAT 98
--- NOTE | 2024-04-12 09:48 | PM.IMHP ---
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 Patient had her right hip replaced in 2017 and is doing very well for her. Her left hip continues to be very symptomatic on a daily basis. She has moderately severe osteoarthritis in the hip. She has tried taking xbcw-vwa-xvghssy anti-inflammatories but after several days she starts to develop stomach distress and has to stop these. She has pain predominantly in the groin that radiates to the anterior lateral hip. Patient has reached a point where she feels she is ready to proceed with total hip arthroplasty. Review of Systems Review of Systems: All systems reviewed & are unremarkable except as noted in HPI and below PMFSH Past Medical History Medical History (Updated 03/29/24 @ 08:35 by Janett Silva MD) Breast cancer Prediabetes Surgical History Surgical History History of lumpectomy 2016 History of total right hip replacement 2017 Hx of removal of ovary 1989 Family History Family History Mother Family history of thyroid disease Father Family history of blood dyscrasia Social History Social History Smoking packs per day: 0.5 Smoking cigarettes per day: 10.0 Years smoked: 25 Smoking pack-years: 12.50 Smoking status: Former smoker Tobacco type: cigarettes Second hand tobacco smoke exposure: Yes Smoking end date: 03/13/24 Additional smoking assessment comments: DENIES ANY FORM OF TOBACCO USR Alcohol intake: current Alcohol use details: occasional Substance use: never Substance use type: does not use Do You Feel Safe in your Home?: Yes Lack of Transportation: No Lack of Food: Never True Current Housing: I Have Housing Concerned About Future Housing: Decline to Answer Difficulty Paying Gas/Electric Bills: Decline to Answer Difficulty Paying for Meds: Decline to Answer Currently Unemployed: Decline to Answer Education: Decline to Answer Difficulty w/ Childcare or Family Care: Decline to Answer Living arrangements: alone Occupation/Education: retired Additional occupation/education comments: [id number] Gender identity (if verbalized by the patient): Female Spiritual care concerns: No Meds Home Medications and Allergies Home Medications Medication Instructions Recorded Confirmed Type anastrozole 1 mg tablet 1 mg PO DAILY 07/16/19 03/28/24 History calcium 600 mg (as 1 cap PO BID 03/28/24 03/28/24 History carbonate)-vitamin D3 10 mcg (400 unit) capsule naproxen sodium 220 mg capsule 220 mg PO Q12H PRN Pain 03/28/24 03/28/24 History (Aleve) Allergies Allergy/AdvReac Type Severity Reaction Status Date / Time No Known Allergies Allergy Verified 03/28/24 10:06 Exam Narrative: 68-year-old female alert pleasant. She is 5 ft 7 and 152 lb BMI is 238. Her left hip flexes to 135, externally rotates to 40 internally rotates to 40. She has significant groin pain with rotation of the hip. She has groin pain with Stinchfield maneuver. She has normal abduction strength in lateral position, no tenderness over the greater trochanter. Skin around the hip and groin crease are normal. 2+ posterior artery pulse palpable. Normal sensation to the left lower extremity. No edema in the lower extremities. She walks with a very slight limp. Resp: Auscultation: clear to auscultation bilaterally Cardio: Rate: regular rate Rhythm: regular rhythm Assessment and Plan Assessment and plan (1) Primary osteoarthritis of left hip: Code(s): M16.12 - Unilateral primary osteoarthritis, left hip Status: Acute Assessment and Plan: 68-year-old female who has mo
[2024-04-15] VITALS (9 sets, daily range): BP systolic 100–123; BP diastolic 55–79; PULSE 48–68; RESP 12–16; TEMP 36.2–37.4; O2SAT 95–100
--- NOTE | ~2024-04-15 | XR_ITS ---
XR hip LT 1V w AP pelvis Ordering provider: Sourav Lopez MD History: . POST OP . Comparison: February 28, 2024 FINDINGS: BONES: No acute fracture or dislocation. HIP JOINT SPACES: Bilateral total hip arthroplasty. PUBIC SYMPHYSIS: Normal. SOFT TISSUES: Postoperative changes in the soft tissues of the left hip. IMPRESSION: No acute osseous abnormality pelvis. Bilateral total hip arthroplasty. Reviewed, dictated and finalized at location A.
--- NOTE | ~2024-04-15 | XR_ITS ---
EXAMINATION: XR surgery orthopedic DATE: 04/15/2024 10:59 INDICATION: Intraoperative evaluation during left total hip arthroplasty TECHNIQUE: A single frontal fluoroscopic image of the left hip were obtained during procedure perform ed by Dr. Lopez. Radiologist was not present for the imaging or procedure. The amount of fluoroscop y time used during this procedure was 0.7 minutes. COMPARISON: 02/28/2024 FINDINGS: There is a noncemented left total hip arthroplasty in near anatomic alignment on the single image pro vided. Acetabular component is affixed with at least a single screw. Portions of the pelvis are exclu ded from the [id number]. No fractures in the visualized bones. Small amount of expected soft tissu e gas at the operative bed. IMPRESSION: 1. Expected appearance of a noncemented left total hip arthroplasty. Reviewed, dictated and finalized at location A.
[2024-04-15] MEDS: LACTATED RINGERS 1,000 ML 30 ML IV CONT ×2 (06:55→11:15)
[2024-04-15] MEDS: TRANEXAMIC ACID 1,000MG/ISO100 1,000 MG/100 ML BAG 200 MG IVPB (06:55)
[2024-04-15] MEDS: VANCOMYCIN 1,250 MG/NS 250 ML BAG 166.67 MG IVPB (06:55)
[2024-04-15] MEDS: ACETAMINOPHEN 500 MG TABLET 1000 MG PO (06:55)
--- NOTE | 2024-04-15 07:15 | WPDHPUPDATE1 ---
History and Physical Update Update Date/Time: 04/15/24 07:15 History and Physical has been reviewed, including an updated exam of the patient. There are NO changes in the patient's condition. Risks, benefits, and alternatives have been discussed and questions answered. Patient agrees to proceed with procedure.
[2024-04-15] MEDS: SODIUM CHLORIDE 0.9% IV 37.7 ML, MORPHINE SULFATE INJ (*CRX) 2 MG, ROPivacaine HCL 1% 2... INFILTRATE (07:17)
[2024-04-15] MEDS: ceFAZolin SODIUM 1 GM VIAL 3 GM (07:17)
--- NOTE | 2024-04-15 07:28 | WPDANESEPPF ---
Anes - Initial Pre Proc Eval Procedure: Operation Date: 04/15/24 07:30 Proposed Procedures p Left Total Hip Arthroplasty Anterior Approach - Sourav Lopez MD Date/Time: 04/15/24 07:28 Surgeon: Sourav Lopez MD Pre Op Diagnosis: oa left hip Patient Data Age: 68 Gender: F Height: 1.7 m Weight: 69.9 kg Last Vital Signs Temp 36.8 C 03/28/24 10:47 Pulse 70 03/28/24 10:47 Resp 18 03/28/24 10:47 BP 127/95 H 03/28/24 10:47 Pulse Ox 98 03/28/24 10:47 O2 Del Method Room Air 03/28/24 10:47 Allergies Allergy/AdvReac Type Severity Reaction Status Date / Time No Known Allergies Allergy Verified 03/28/24 10:06 Home Medications Medication Instructions Recorded Confirmed Type anastrozole 1 mg tablet 1 mg PO DAILY 07/16/19 03/28/24 History calcium 600 mg (as 1 cap PO BID 03/28/24 03/28/24 History carbonate)-vitamin D3 10 mcg (400 unit) capsule naproxen sodium 220 mg capsule 220 mg PO Q12H PRN Pain 03/28/24 03/28/24 History (Aleve) Patient hx anesthesia problems: none Family hx anesthesia problems: none Results Review: All pre-operative results and documents have been reviewed as part of the pre-operative evaluation. [facility] Past Medical History Medical History Breast cancer Prediabetes Surgical History Surgical History History of lumpectomy 2017 History of total right hip replacement 2017 Hx of removal of ovary 1989 Family History Family History Mother Family history of thyroid disease Father Family history of blood dyscrasia Social History Social History Smoking packs per day: 0.5 Smoking cigarettes per day: 10.0 Years smoked: 25 Smoking pack-years: 12.50 Smoking status: Former smoker Tobacco type: cigarettes Second hand tobacco smoke exposure: Yes Smoking end date: 03/13/24 Additional smoking assessment comments: DENIES ANY FORM OF TOBACCO USR Alcohol intake: current Alcohol use details: occasional Substance use: never Substance use type: does not use Do You Feel Safe in your Home?: Yes Lack of Transportation: No Lack of Food: Never True Current Housing: I Have Housing Concerned About Future Housing: Decline to Answer Difficulty Paying Gas/Electric Bills: Decline to Answer Difficulty Paying for Meds: Decline to Answer Currently Unemployed: Decline to Answer Education: Decline to Answer Difficulty w/ Childcare or Family Care: Decline to Answer Living arrangements: alone Occupation/Education: retired Additional occupation/education comments: [id number] Gender identity (if verbalized by the patient): Female Spiritual care concerns: No Anes - Eval Final PreProcedure Day of Procedure 04/15/24 07:28 Patient weight: normal Heart: regular rate and rhythm Lungs: clear to auscultation Airway: Mallampati scale class II Neurological: alert and oriented Last oral intake: >/= 8 hours ASA classification: III Emergent: no Anesthetic plan: proceed Anesthesia type and monitoring: general ETT and standard monitoring Results Review: All pre-operative results and documents have been reviewed as part of the pre-operative evaluation. Informed Consent: The patient's anesthetic plan and its attendant risks and benefits were discussed with the patient/family/POA. Questions were solicited and answers provided to the satisfaction of the patient/family/POA.
[2024-04-15] MEDS: ceFAZolin 2 GM/D5W 50 ML 2 GM/50 ML BAG IVPB ×2 (07:33→15:06)
[2024-04-15] MEDS: ceFAZolin SODIUM 1 GM VIAL 2 GM IV PUSH (10:41)
[2024-04-15] MEDS: TRANEXAMIC ACID 1,000 MG/10 ML AMPUL 1000 MG IV PUSH (10:41)
[2024-04-15] MEDS: KETOROLAC 15 MG/ML VIAL (*BKC) IV PUSH ×3 (10:42→17:02)
--- NOTE | 2024-04-15 11:23 | PM.OP ---
Procedure Note - Brief Procedure Note - Brief Date of procedure: 04/15/24 oa left hip Procedure performed: Left anterior total hip arthroplasty Surgeon: PARKER Padilla Findings: 68-year-old female who underwent left anterior total hip arthroplasty on 04/15. I was involved in the procedure including positioning the patient on the OR table and 1st assisting through the time surgery. Total time spent was 3-1/2 hours
--- NOTE | 2024-04-15 11:25 | W.PM.PROC2 ---
Procedure Note - Detailed Date of Procedure 04/15/24 Pre-op Diagnosis oa left hip Post-op Diagnosis Same Procedure Performed Direct anterior approach total hip arthroplasty Surgeon Sourav Lopez MD Carton Repairer Sarah Barone Anesthesia General Description of Procedure Patient brought to the operating room general anesthesia was administered. The feet were padded boots applied patient transferred to the OSI [place] table and the left hip prepped draped usual fashion. She received 2 g of Ancef weight based vancomycin 1 g of TXA preoperatively. A 10 cm longitudinal incision was made starting 3 cm lateral to the ASIS. Dissection was carried down to subcutaneous fat. The fascia over the tensor fascia keyla was longitudinally incised and elevated off the anterior 50% of the TFL muscle. Interval between rectus femoris and TFL developed. Crossing branches of ascending lateral femoral circumflex vessels were ligated with suture divided. Retractor was placed anterior medial to the capsule the hip abducted internally rotated the gluteus minimus elevated off the lateral capsule. Inverted T capsulotomy was performed. Femoral neck osteotomy made according to preoperative templating. Femoral head was removed. It measured 51 mm in diameter. It was severely arthritic. Acetabulum was exposed labrum excised. The leg was externally rotated and extended and the remaining lateral capsule insertion on the medial greater trochanter was released. She had enough mobility that we did not need to incise the interval between conjoined tendon and piriformis. With the leg back in the horizontal position traction external rotation acetabulum was prepared. We did this under fluoroscopic guidance. We medialized with a 44 Reamer reamed up to a 50 and could see that we could go up 1 more size. We reamed to 51 and a very light reaming with the 52 peripherally. We chose the 52 pinnacle cup which was fully seated with excellent Press-Fit placed at 40? of abduction and anteversion such that the posterior shell margin was flush with the posterior margin acetabulum and the anterior margin of the shell well into the anterior acetabulum. I should mention there was a fractured anterior superior osteophyte which we noted when we 1st approached the hip which was removed and additional an anterior osteophyte present. A screw was placed in the ilium 36 inner diameter liner placed and remaining anterior and inferior osteophytes removed. The femur was externally rotated and extended with the table hook exposing the femur. We broached up to a size 6 and took an intraoperative x-ray which showed that we would have equal leg lengths following our preoperative plan with standard offset and a 0.5 neck. We could see there was a little bit of wiggle on torsional stress and we were able to go up to the size 7 which seated flush with the neck cut. We did do minimal calcar planing. On read trialing again the 8.5 standard neck and appropriate stability soft tissue tension and equal leg lengths under fluoro. We chose the Actis size 7 standard offset femoral stem which was fully seated without difficulty no cracks in the calcar. We trialed with the 8.5 trial and again appropriate soft tissue tension and stability was seen. The 8.5 ceramic head was placed onto the clean and dried trunnion. The hip reduced stability reconfirmed. Local anesthetic cocktail was injected into the periarticular soft tissues. The superior limb of the capsulotomy was reapproximated with 2. Vicryl. The fascia closed with running 1. Vicryl drain in the subcu skin closed with 2 subcutaneous Vicryl and glue. EBL was estimated at 750 cc. The wound was quite dry time wound closure. Bleeding was all bony. She was given 375 as Cell Saver. Two additional g of Ancef and 1 g of TXA given time wound closure. There were no complications he was transferred postop recovery room in stable condition. I anticipate in having her be weight-bearing as
[2024-04-15] MEDS: fentaNYL CITRATE INJ (*CRX) 100 MCG/2 ML VIAL 25 MCG IV PUSH ×5 (11:37→12:15)
[2024-04-15] MEDS: SODIUM CHLORIDE 0.9% IV 1,000 ML 125 ML IV CONT (13:07)
[2024-04-15] MEDS: oxyCODONE HCL (*CRX) 5 MG TAB IR PO (13:15)
[2024-04-15] MEDS: ACETAMINOPHEN 325 MG TABLET 650 MG PO ×3 (13:15→21:12)
--- NOTE | 2024-04-15 13:41 | ADMGEN ---
This patient, Mitch Roche, was admitted to 3 [facility] Surg Room 302-01. Patient/family oriented to hospital policies and general routines including ID bracelet, bed and alarms, visiting hours, pain management, procedures, bathroom and other care routines, personal items, smoking policy, room service/diet, and visiting hours. Information on how to activate the Rapid Response Team has been discussed. Patient/Family are encouraged to report perceived risks to care and to ask questions if they do not understand what they are told or what they should do. Report from CAT.
--- NOTE | 2024-04-15 15:02 | PM.IMCN ---
Assessment and Plan Assessment and plan (1) Primary osteoarthritis of left hip: Code(s): M16.12 - Unilateral primary osteoarthritis, left hip Status: Acute Assessment and Plan: 04/15/24: status post left total hip arthroplasty performed today by Dr. Lopez 750 mL blood loss and was given 375 of Cell Saver while in the OR. monitor labs and vital signs continue pain control continue nausea control continue DVT prophylaxis of Eliquis 2.5 mg b.i.d. per surgical team continue to use ice elevation PT and OT ordered to evaluate and treat full weight-bearing status ordered Case coordination consulted for outpatient rehab needs continue incentive spirometer Q 2 hour continue hip precautions Maintain hemovac drain (2) Breast cancer: Code(s): C50.919 - Malignant neoplasm of unspecified site of unspecified female breast Status: Acute Assessment and Plan: 04/15/24: history of breast cancer, status post lumpectomy continue Anastrozole 1mg tablet daily HPI Date of Consult Consult date: 04/15/24 Requesting Physician: Sourav Lopez MD Primary Care Provider: Janett Silva MD Consult Narrative Narrative: Mitch Roche is a 68 year old female with a significant past medical history of breast cancer status post lumpectomy, prediabetes, right total hip replacement, former smoker who presented to [facility] for elective left total hip replacement with Dr. Lopez today. Patient denies any pain, fever, chills, nausea, vomiting, diarrhea, abdominal pain, shortness of breath or chest pain. She has worked with therapy once today and has already been ambulating to the bathroom without difficulty. She plans to return home upon discharge. We were consulted for medical management while inpatient. Review of Systems Review of Systems: All systems reviewed & are unremarkable except as noted in HPI and below Constitutional: Constitutional: Reports as per HPI and Reports no additional constitutional complaints Eyes: Eyes: Reports as per HPI and Reports no additional eye complaints ENT: Reports system reviewed and no additional complaints, except as documented and Reports as per HPI Cardiovascular: Cardiovascular: Reports as per HPI and Reports no additional cardiovascular complaints Respiratory: Respiratory: Reports as per HPI and Reports no additional respiratory complaints Gastrointestinal: Gastrointestinal: Reports as per HPI and Reports no additional gastrointestinal complaints Genitourinary: Genitourinary: Reports no additional female genitourinary complaints and Reports as per HPI Musculoskeletal: Musculoskeletal: Reports no additional musculoskeletal complaints and Reports as per HPI Integumentary/Breasts: Skin/Breast: Reports system reviewed and no additional complaints, except as docu and Reports as per HPI Neurologic: Reports system reviewed and no additional complaints, except as documented and Reports as per HPI Psychiatric: Psychiatric: Reports no additional psychiatric complaints and Reports as per HPI Endocrine: Endocrine: Reports no additional endocrine complaints and Reports as per HPI Hematologic/Lymphatic: Hematologic/Lymphatic: Reports no additional hematologic/lymphatic complaints and Reports as per HPI Allergic/Immunologic: Allergic/Immunologic: Reports no additional allergic/immunologic complaints and Reports as per HPI PMFSH Past Medical History Medical History Breast cancer Prediabetes Surgical History Surgical History History of lumpectomy 2017 History of total right hip replacement 2017 Hx of removal of ovary 1989 Family History Family History Mother Family history of thyroid disease Father Family history of blood dyscrasia Social History Social Histor
[2024-04-15] MEDS: SENNA/DOCUSATE SODIUM TABLET 2 TAB PO (16:56)
[2024-04-15] MEDS: VANCOMYCIN 1,000 MG/NS 250 ML 1,000 MG/250 ML BAG 250 MG IVPB (18:13)
[2024-04-15] MEDS: FAMOTIDINE 20 MG TABLET PO (21:12)
[2024-04-16 00:04] VITALS: BP 100/56; PULSE 102; RESP 16; TEMP 36.5; O2SAT 97
[2024-04-16] MEDS: ceFAZolin 2 GM/D5W 50 ML 2 GM/50 ML BAG IVPB ×2 (00:08→07:48)
[2024-04-16] MEDS: oxyCODONE HCL (*CRX) 5 MG TAB IR PO ×3 (01:28→08:00)
[2024-04-16] MEDS: ACETAMINOPHEN 325 MG TABLET 650 MG PO ×3 (01:28→08:59)
[2024-04-16 05:35] VITALS: BP 103/59; PULSE 79; RESP 14; TEMP 37.1; O2SAT 97
[2024-04-16] MEDS: VANCOMYCIN 1,000 MG/NS 250 ML 1,000 MG/250 ML BAG 250 MG IVPB (06:04)
[2024-04-16 06:31] LABS: Basophils Percent Auto 0.3 % (0.2-1.2); Eosinophils Percent Auto 0.3 % (0-4.4); Hematocrit 30.6 % (37.0-47.0); Hemoglobin 10.2 g/dL (12.0-15.0); Immature Granulocyte Absolute 0.04 K/mm3 (0.00-0.031); Immature Granulocyte Percent A 0.3 % (0-0.5); Lymphocytes Absolute Auto 1.61 K/mm3 (0.9-3.2); Mean Corpuscular HGB Conc 33.3 g/dl (32-36); Mean Corpuscular Hemoglobin 32.7 pg (26-34); Mean Corpuscular Volume 98.1 fl (80-100); Mean Platelet Volume 9.7 fl (7.4-10.4); Monocytes Absolute Auto 1.2 K/mm3 (0.1-0.6); Monocytes Percent Auto 10.7 % (2.6-8.5); Neutrophils Absolute Auto 8.6 K/mm3 (1.3-6.7); Neutrophils Percent Auto 74.4 % (45.5-73.1); Platelet Count Result 253 k/mm3 (150-375); Red Blood Count 3.12 M/mm3 (4.2-5.4); Red Cell Distribution Width 13.3 % (11.5-14.5); White Blood Count 11.5 K/mm3 (4.5-10.0)
[2024-04-16 06:33] LABS: Alanine Aminotransferase 12 U/L (6-35); Alkaline Phosphatase 41 U/L (38-126); Anion Gap 4 mmol/L (4-12); Aspartate Amino Transferase 27 U/L (14-36); Bilirubin,Total 0.5 mg/dL (0.2-1.3); Blood Urea Nitrogen 17 mg/dL (7-17); Calcium 8.4 mg/dL (8.4-10.2); Carbon Dioxide 28 mmol/L (22-30); Chloride 103 mmol/L (98-107); Estimated CRCL calculation 56 ml/min; Estimated Glomerular Filt Rate > 60; Glucose 92 mg/dL (65-110); Potassium 4.2 mmol/L (3.4-5.0); Sodium 135 mmol/L (137-145)
[2024-04-16] MEDS: CELECOXIB 100 MG CAPSULE PO (08:00)
[2024-04-16] MEDS: FAMOTIDINE 20 MG TABLET PO (08:00)
[2024-04-16] MEDS: polyethylene glycoL 3350 17 GM POWD.PACK PO (08:00)
[2024-04-16] MEDS: APIXABAN 2.5 MG TABLET PO (08:01)
[2024-04-16] MEDS: ANASTROZOLE (*CHEMO) 1 MG TABLET PO (08:01)
[2024-04-16] MEDS: CEFDINIR 300 MG CAPSULE PO (08:01)
[2024-04-16] MEDS: SENNA/DOCUSATE SODIUM TABLET 2 TAB PO (08:01)
--- NOTE | 2024-04-16 08:50 | PM.DS ---
DS: Admitting Diagnosis Discharge Date 04/16/2024 Admitting Diagnosis Osteoarthritis left hip. DS: Summary Hospital Course Hospital Course: Patient underwent left total hip arthroplasty direct anterior approach yesterday morning. She has had an uneventful postoperative course. Her hemoglobin this morning is 10.2 representing acute blood loss anemia. Her bone surfaces did bleed more than average and total estimated blood loss was 750 cc in surgery and she received 350 cc of blood returned as Cell Saver packed red blood cells. She was up and walking in her room yesterday. We are allowing her to be weight-bearing as tolerated. Her bone was a little bit soft but we finished with excellent fit and fill. I explained to her that she does have osteopenia T-score of-2 point her recent bone density test of the left hip and advised her to follow Dr. Chavez ordered the test and her primary care doctor Dr. Silva. Her remaining laboratory studies are normal except for Albumin and total serum protein this morning which were slightly low. Her BUN is 17 and preop it was 18. Her wound looks fine. No evidence swelling about the left hip or thigh. She is neurologically intact. She feels well and feels ready to go today. She will use the walker weight-bearing as tolerated. She will see me in the office in 2 weeks. Time Spent with Patient Time attestation: Total time spent providing and/or coordinating discharge services: DS: Data Data Completed and Pending Labs on day of discharge: Labs from last 24 hours 04/16/24 05:59 WBC 11.5 H RBC 3.12 L Hgb 10.2 L D Hct 30.6 L MCV 98.1 MCH 32.7 MCHC 33.3 RDW 13.3 Plt Count 253 MPV 9.7 Immature Gran % (Auto) 0.3 Neut % (Auto) 74.4 H Lymph % (Auto) 14.0 L Pierce % (Auto) 10.7 H Eos % (Auto) 0.3 Baso % (Auto) 0.3 Lymph # (Auto) 1.61 Pierce # (Auto) 1.2 H Eos # (Auto) 0.0 Baso # (Auto) 0.0 Abs Immat Gran (auto) 0.04 H Absolute Neuts (auto) 8.6 H Absolute Nucleated RBC 0.000 Nucleated RBC % 0.0 Sodium 135 L Potassium 4.2 Chloride 103 Carbon Dioxide 28 Anion Gap 4 BUN 17 Creatinine 0.80 Estim Creat Clear Calc 56 Estimated GFR > 60 Glucose 92 Calcium 8.4 Total Bilirubin 0.5 AST 27 ALT 12 Alkaline Phosphatase 41 Total Protein 6.0 L Albumin 3.0 L Procedures/Treatments: Left total hip arthroplasty on 04/15/2024 Discharge Plan Discharge Patient Disposition: Home, Self-Care Discharge Instructions: CLAUDIO FOREMAN M.D [facility] [address] [address] [address] [place] [address] POST-OPERATIVE DISCHARGE INSTRUCTIONS ANTERIOR TOTAL HIP ARTHROPLASTY 1. Move toes/feet up and down every hour while awake. 2. Be up walking every hour while awake. 3. Use walker time study observer if instructed to use walker time study observer.When you are allowed to use the cane, use the cane in the opposite hand. Because of your somewhat diminished bone density, we are going to else full-time for 4 weeks. You may put all of your weight on the left leg as her comfort allows and try to walk normally with your hands on the walker. 4. When resting, do not rest in the chair. Rather, lie on your back, with back flat, and the leg elevated above heart to minimize swelling. You may put a pillow under your head. Do not rest in a chair. Resting in the chair results in swelling in the leg. Significant swelling could indicate a blood clot and if this occurs, call the office (or go to the ER) to have a venous ultrasound performed. Its ok to sit in the chair to eat and use the toilet and to receive a guest but sitting in a chair will cause your leg to swell. so try to minimize sitting in a chair. 5. Wound Care: Apply a folded 4x4 sponge to incision and hold with crossing strips of 1 inch Transpore tape. 6. Follow weight bearing status as instructed: 7. May shower. Remove dressing before shower and reapply dressing after shower. Also, your
== END 2024-04-16 11:20 | disposition home or self-care (01) ==
LOC: ANHSURGERY 05:58 → ANH3MEDSUR 12:33
PROVIDERS: Nurse Practitioner Acute Care; Physician Assistant Surgical; PCP Family Medicine; Visit Provider Orthopaedic Surgery
PROC: (CPT 27130; principal; 2024-04-15 07:30)
DX: M16.12 Unilateral primary osteoarthritis, left hip (principal); M25.752 Osteophyte, left hip; R73.03 Prediabetes; Z79.1 Long term (current) use of non-steroidal anti-inflammatories (NSAID); Z98.890 Other specified postprocedural states; Z96.641 Presence of right artificial hip joint; Z87.891 Personal history of nicotine dependence; Z85.3 Personal history of malignant neoplasm of breast
CPT/HCPCS: 27130; 36415; 73501; 80048; 80053; 80307; 82040; 83036; 85025; 86850; 86900; 86901; 87081; 93005; 97110; 97116; 97161; 97165; 97530; 97535; 99199; A9270; C1776; J0171; J0690; J1100; J1596; J1885; J2250; J2270; J2371; J2704; J2710; J2795; J3010; J3370; J7030; J7120

== ENCOUNTER 2024-06-04 10:50 | Outpatient (CLI) | payer MEDICARE, SELFPAY ==
--- NOTE | ~2024-06-04 | MMUS_ITS ---
EXAMINATION: US breast LT complete, MM diagnostic reva BI w sam HISTORY: Follow-up left breast asymmetry TECHNIQUE: Additional 3-D tomosynthesis images of the left breast were performed and synthetic 2-D im ages were generated. CAD analysis was submitted and interpreted. High resolution complete left breast ultrasound was performed. COMPARISON: Comparison to multiple prior studies sequentially, with oldest reviewed study dated 01/16. BREAST PARENCHYMAL COMPOSITION: Not dense: There are scattered areas of fibroglandular density. FINDINGS: MAMMOGRAPHIC FINDINGS: There are lumpectomy changes in the upper central aspect of the right breast. There is no mammographi c evidence for malignancy in the right breast. There are small low-density masses in the periareolar/ subareolar location of the left breast. There is no architectural distortion. There are no suspicious calcifications. ULTRASOUND: Complete US of all 4 quadrants of the breast/s and retroareolar region was reviewed. At 12:00 near th e nipple there is a 4 mm cyst. At 7:00, 3 cm from the nipple there is an oval hypoechoic mass measuri ng 4 mm with heterogeneous internal echotexture, no posterior features or internal vascularity. At 7: 00, 2 cm from the nipple there is a 4 mm cyst. IMPRESSION: 1. Multiple sonographic masses are identified corresponding to the mammographic findings. 2 of the ma sses are simple cysts. At 7:00, 3 cm from the nipple there is a probable benign 4 mm mass. 2. Recommend 6 month follow-up diagnostic left mammogram and Limited left breast ultrasound BI-RADS category 3, probably benign findings. Reviewed, dictated and finalized at location B. LE BEVELER IMPRESSION: 1. Multiple sonographic masses are identified corresponding to the mammographic findings. 2 of the masses are simple cysts. At 7:00, 3 cm from the nipple ther e is a probable benign 4 mm mass. 2. Recommend 6 month follow-up diagnostic left mammogram and Limited left breas t ultrasound BI-RADS category 3, probably benign findings.
== END 2024-06-04 10:51 | disposition home or self-care (01) ==
LOC: ANHIMG 10:51
PROVIDERS: PCP Family Medicine; Visit Provider Internal Medicine Hematology & Oncology
DX: R92.8 Other abnormal and inconclusive findings on diagnostic imaging of breast (principal)
CPT/HCPCS: 76641; 77062; 77066; G0279

== ENCOUNTER 2024-12-05 10:35 | Outpatient (CLI) | payer MEDICARE, SELFPAY ==
--- NOTE | ~2024-12-05 | MM_ITS ---
EXAMINATION: US breast LT limited, MM diagnostic reva LT w sam HISTORY: BI-RADS 3, short-term follow-up of probably benign mass at 7:00 location in the left breast. TECHNIQUE: Additional 3-D tomosynthesis images of the left breast were performed and synthetic 2-D im ages were generated. CAD analysis was submitted and interpreted. High resolution targeted left breast ultrasound was performed. COMPARISON: 06/04/2024 BREAST PARENCHYMAL COMPOSITION: Not dense: There are scattered areas of fibroglandular density. FINDINGS: MAMMOGRAPHIC FINDINGS: Previously reported periareolar/subareolar low-density mass is a less obvious on this current examina tion. There is no architectural distortion. There are no suspicious calcifications. ULTRASOUND: At 7:00, 3 cm from the nipple, 0.3 cm hypoechoic circumscribed mass density identified is unchanged. IMPRESSION: 1. Probable benign left breast mass at 7:00 location is unchanged demonstrating 6 months stability. 2. Recommend 6 month follow-up Limited left breast ultrasound and bilateral diagnostic mammography. BI-RADS category 3, probably benign findings. Reviewed, dictated and finalized at location B. IMPRESSION: 1. Probable benign left breast mass at 7:00 location is unchanged demonstrating 6 months stability. 2. Recommend 6 month follow-up Limited left breast ultrasound and bilateral jodie gnostic mammography. BI-RADS category 3, probably benign findings.
--- OUTSIDE RECORDS SUMMARY | 2024-12-05 11:38 | XMS_ITS | Encounter Summary ---
Author Organization [facility] Address [address] [place] [address] Care Team Providers Care Strategic Partner Development Manager Name Role Phone Cinthya Jacinto MD Primary Care Provi orestes Encounter Details Date Type Department Care Team (Late st Contact Info) Description 10/04/2016 Chart Note [facility] Radiation Therapy [address] [place] [address] [place] [address] [place] [address] Social History Tobacco Use Types Packs/Day Years Used Date Smoking Tobacco: Never Assessed Comments Unknown Sex and Gender Information Value Date Recorded Sex Assigned at Not on file Legal Sex Female 11:00 AM CDT Gender Identity Not on file Sexual Orientation Not on file documented as of this encounter Plan of Treatment Upcoming Encounters Date Type Department Care Team (Late st Contact Info) Description 01/29/2025 1:00 PM CDT Office Visit [facility] Oncology and Hematology - [place] [address] [facility] [address] [place] [address] Karel Hines MD [address] [facility] [address] [place] [address] documented as of this encounter Visit Diagnoses Not on filedocumented in this encounter Care Teams Strategic Partner Development Manager Relationship Specialty Start Date End Date Cinthya Jacinto MD [address] [place] [id number] PCP - General Family Practice 07/12/18 documented as of this encounter
--- OUTSIDE RECORDS SUMMARY | 2024-12-05 11:38 | XMS_ITS | Clinical Summary ---
Author Organization [facility] Address [address] [place] [phone] Care Team Providers Care Candy Polisher Name Role Phone Unavailable Primary Care Provider Unavailabl e Immunizations Immunization Administration Dates Next Due Covid-19, Mrna, Lnp-s, Pf, 30 Mcg/0.3 Ml Dose (P edisno) 04/30/2021 Social History Tobacco Use Types Packs/Day Years Used Date Smoking Tobacco: Never Assessed Comments Unknown Sex and Gender Information Value Date Recorded Sex Assigned at Not on file Legal Sex Female 2:39 PM CDT Gender Identity Not on file Sexual Orientation Not on file Plan of Treatment Health Maintenance Due Date Last Done Comments Hepatitis C Virus (HCV) Screening 1955 Colonoscopy 1999 Colorectal Cancer Screening 1999 Cologuard 2004 Immunochemical Fecal Occult Blood 2004 Pneumococcal Immunization (5 0+ years) (1 of 1 - PCV) 2004 Zoster Immunization (2 of 2) 05/28/2021 04/02/2021 SARS-COV-2 Immunization ( season) 2024 04/30/2021, 09/19/2020, 08/29/2020 Influenza Immunization (Seas on Ended) 2025 03/17/2020 Respiratory Syncytial Virus (RSV) Immunization (Adult) (1 - 1-dose 75+ series) 2029 DTaP/Tdap/Td Immunization Discontinued 2015, 09/13/2005, 11/21/1995 TdaP Immunization Completed 06/28/2016 Hepatitis B Immunization Aged Out No longer eligible based on patient's age to complete this topic Human Papillomavirus (HPV) Immunization Aged Out No longer eligible based on patient's age to complete this topic Meningococcal Immunization (ACWY) Aged Out No longer eligible based on patient's age to complete this topic Rotavirus Immunization Aged Out No lo nger eligible based on patient's age to complete this topic
--- OUTSIDE RECORDS SUMMARY | 2024-12-05 11:38 | XMS_ITS | Encounter Summary ---
Author Organization [facility] Address [address] [place] [address] Care Team Providers Care Farm Implement Mechanic Name Role Phone Cinthya Jacinto MD Primary Care Provi orestes Encounter Details Date Type Department Care Team (Late st Contact Info) Description 12/03/2024 External Device Data [facility] ABSTRACTION Provider, Abstract NO ADDRESS ON FILE Social History Tobacco Use Types Packs/Day Years Used Date Smoking Tobacco: Light Smoker Cigarettes 0.3 40 Smokeless Tobacco: Never Comments:smoked occasionally for many years Alcohol Use Standard Drinks/Week Comments Yes 0 (1 standard drink = 0.6 oz pur e alcohol) occasion Comments No Sex and Gender Information Value Date Recorded Sex Assigned at Not on file Legal Sex Female 11:00 AM CDT Gender Identity Not on file Sexual Orientation Not on file documented as of this encounter Plan of Treatment Upcoming Encounters Date Type Department Care Team (Late st Contact Info) Description 01/29/2025 1:00 PM CDT Office Visit [facility] Oncology and Hematology - [place] [address] [facility] [address] [place] [address] Karel Hines MD [address] [facility] [address] [place] [address] documented as of this encounter Visit Diagnoses Not on filedocumented in this encounter Care Teams Farm Implement Mechanic Relationship Specialty Start Date End Date Cinthya Jacinto MD [address] [place] [phone] PCP - General Family Practice 07/12/18 documented as of this encounter
--- OUTSIDE RECORDS SUMMARY | 2024-12-05 11:38 | XMS_ITS | Clinical Summary ---
Author Organization [facility] Address [address] [place] [address] Care Team Providers Care Distribution Systems Serviceperson Name Role Phone Cinthya Jacinto MD Primary Care Provi orestes Allergies No known active allergies Medications calcium as carbonate (CALTRATE) 1,500 mg (600 mg elemental) Tablet Take 600 mg by mouth 2 times daily. Active anastrozole (ARIMIDEX) 1 mg tabletIndicatio ns:Malignant neoplasm of upper-outer quadrant of right breast in female, estrogen receptor positive (CMS/HCC),Estro gen receptor positive take 1 tablet by mouth every day 90 Tablet 3 06/05/2023 Active alendronate (FOSAMAX) 35 mg tablet Take 1 Tablet (35 mg) by mouth every 7 days. empty stomach before other meds,with 8oz of water, stay upright 30 min 4 Tablet 5 08/02/2024 Active Active Problems Problem Noted Date Diagnosed Date History of external beam radiation therapy 01/16 Aromatase inhibitor use 01/16/2018 Estrogen receptor positive 01/16/2018 Malignant neoplasm of upper- outer quadrant of right breast in female, estrogen receptor positive 10/07/2016 Tobacco use 10/07/2016 Encounters Date Type Department Care Team Description 12/03/2024 External Device Data STL ABSTRACTION Provider, Abstract 11/21/2024 External Device Data STL ABSTRACTION Provider, Abstract 11/20/2024 External Device Data STL ABSTRACTION Provider, Abstract 11/20/2024 External Device Data STL ABSTRACTION Provider, Abstract from Last 3 Months Family History Medical History Relation Name Comments Healthy Brother 1 Other Brother 2 Relation Name Status Comments Brother 1 Alive Brother 2 Alive Father Mother Alive Social History Tobacco Use Types Packs/Day Years Used Date Smoking Tobacco: Light Smoker Cigarettes 0.3 40 Smokeless Tobacco: Never Tobacco Cessation:Ready to Q uit: Not Asked; Counseling Given: Not Answered Comments:smoked occasionally for many years Alcohol Use Standard Drinks/Week Comments Yes 0 (1 standard drink = 0.6 oz pur e alcohol) occasion Comments No Sex and Gender Information Value Date Recorded Sex Assigned at Not on file Legal Sex Female 11:00 AM CDT Gender Identity Not on file Sexual Orientation Not on file Last Filed Vital Signs Vital Sign Reading Time Taken Comments Blood Pressure 146/100 08/02/2024 9:55 AM BURGLAR ALARM INSTALLER Pulse 65 08/02/2024 9:51 AM BURGLAR ALARM INSTALLER Temperature 36.3 C (97.4 F) 08/02/2024 9:51 AM BURGLAR ALARM INSTALLER Respiratory Rate 16 08/02/2024 9:51 AM BURGLAR ALARM INSTALLER Oxygen Saturation 97% 08/02/2024 9:51 AM BURGLAR ALARM INSTALLER Inhaled Oxygen Concentration - - Weight 70.6 kg (155 lb 9.6 oz) 08/02/2024 9:51 A M BURGLAR ALARM INSTALLER Height 170.2 cm (5' 7) 01/27/2022 10:30 AM CDT Body Mass Index 24.37 01/27/2022 10:30 AM CDT Plan of Treatment Upcoming Encounters Date Type Department Care Team (Late st Contact Info) Description 01/29/2025 1:00 PM CDT Office Visit [facility] Oncology and Hematology - [place] [address] [place] [address] [facility] [address] [place] [address] Karel Hines MD [address] [facility] [address] [place] [address] Health Maintenance Due Date Last Done Comments DTAP/TDAP/TD VACCINES (1 - Tdap) 1973 PNEUMOCOCCAL VACCINE 50+ YEA RS (1 of 2 - PCV) 1973 COLORECTAL SCREENING 1999 Colorectal Cancer Screening 1999 FIT-DNA Q 3 years 1999 FIT/FOBT Q 1 year 1999 Flex Sig/CT Colonography Q 5 years 1999 ZOSTER VACCINE (1 of 2) 2004 OSTEOPOROSIS SCREENING 2019 INFLUENZA VACCINE (#1) 2024 COVID-19 Vaccine (2023-2 5 season) 2024 04/30/2021 BREAST CANCER SCREENING 06/04/2025 06/04/20 24, 03/26/2024, 02/09/2023, Additional history exists RSV VACCINE (60+ or ) (1 - 1-dose 75+ series) 2029 Procedures Procedure Name Priority Date/Time Associated Diagnosis Comments MAMMO BILAT DIAGNOSTIC Routine 06/04/2024 1:07 PM BURGLAR ALARM INSTALLER from Last 3 Months or Most Recently Relevant to Health Maintenance Results * MAMMO BILAT DIAGNOSTIC (06/04/2024 1:07 PM BURGLAR ALARM INSTALLER) Anatomical Region Laterality Modality Breast Bilateral Mammography Karel Hines MD MAMMO ORDERABLES Final Result from Last 3 Months or Most Recently Relevant to Health Maintenance Insurance [facility] Care Teams Distribution Systems Serviceperson Relationship Specialty Start Date End Date Cinthya Jacinto MD [address] [place] [address] PCP - General Family Practice 07/12/18
--- OUTSIDE RECORDS SUMMARY | 2024-12-05 11:38 | XMS_ITS | Clinical Summary ---
Author Organization [facility] Address [address] [place] [address] Care Team Providers Care Hairspring Assembler Name Role Phone Unavailable Primary Care Provider Unavailabl e Source Comments [facility],non-owned Affiliates and Associated Physician Practices is amultiple site organization consisting of ambulatory clinics and hospital sitesin [place], [place], [place] and [place]. This disclosure is being madepursuant to the Care Everywhere program and may not contain all information available regarding this patient. Last updated 18.[facility] [employer] [place] Social History Tobacco Use Types Packs/Day Years Used Date Smoking Tobacco: Never Assessed Comments Unknown Sex and Gender Information Value Date Recorded Sex Assigned at Not on file Legal Sex Female 5:44 PM MEDICAL BILLING AND CODING INSTRUCTOR Gender Identity Not on file Sexual Orientation Not on file Last Filed Vital Signs Vital Sign Reading Time Taken Comments Blood Pressure - - Pulse - - Temperature - - Respiratory Rate - - Oxygen Saturation - - Inhaled Oxygen Concentration - - Weight 68 kg (150 lb) 08/16/2016 8:46 AM MEDICAL BILLING AND CODING INSTRUCTOR Height 170.2 cm (5' 7) 08/16/2016 8:46 AM MEDICAL BILLING AND CODING INSTRUCTOR Body Mass Index 23.49 08/16/2016 8:46 AM MEDICAL BILLING AND CODING INSTRUCTOR Plan of Treatment Health Maintenance Due Date Last Done Comments BONE DENSITY TESTING 1954 COLOGUARD (AGES 45-75) - COL ON CA SCREENING 1954 COLON MONITORING 1954 COLONOSCOPY - COLON CA SCREENING 1954 CT COLONOGRAPHY - COLON CA SCREENING 1954 Colorectal Cancer Screening 1954 FIT - COLON CA SCREENING 1954 FLEX SIG - COLON CA SCREENING 1954 LIPID TESTING 1954 MAMMOGRAM 1954 HEPATITIS C SCREENING 06/09/1972 DTAP/TDAP/TD VACCINES (1 - Tdap) 1973 PNEUMOCOCCAL VACCINE 50+ (1 of 1 - PCV) 2004 ZOSTER VACCINE (1 of 2) 2004 COVID-19 VACCINE (1 - 2023-2 5 season) 2024 DEPRESSION SCREENING 07/03/2024 INFLUENZA VACCINE (Season Ended) 2025 Respiratory Syncytial Virus (RSV) Vaccine Pt: or over 60 yrs (1 - 1-dose 75+ series) 2029 HEPATITIS B VACCINE Aged Out No longe r eligible based on patient's age to complete this topic HIB VACCINE Aged Out No longer eligi ble based on patient's age to complete this topic HPV VACCINE Aged Out No longer eligi ble based on patient's age to complete this topic MENINGOCOCCAL (Group B) VACC INE SHARED DECISION-MAKING Aged Out No longer eligibl e based on patient's age to complete this topic MENINGOCOCCAL GROUPS A/C/Y/W VACCINE Aged Out No longer eligible b ased on patient's age to complete this topic [facility]
== END 2024-12-05 10:36 | disposition home or self-care (01) ==
LOC: ANHIMG 10:37
PROVIDERS: PCP Family Medicine; Visit Provider Internal Medicine Hematology & Oncology
DX: R92.8 Other abnormal and inconclusive findings on diagnostic imaging of breast (principal)
CPT/HCPCS: 76642; 77061; 77065; G0279

== ENCOUNTER 2025-01-22 10:28 | Outpatient (CLI) | payer MEDICARE, SELFPAY ==
--- OUTSIDE RECORDS SUMMARY | 2025-01-22 10:38 | XMS_ITS | Clinical Summary ---
Author Organization [facility] Address [address] [place] [id number] Care Team Providers Care Cell Stripper Final Name Role Phone Unavailable Primary Care Provider Unavailabl e Immunizations Immunization Administration Dates Next Due Covid-19, Mrna, Lnp-s, Pf, 30 Mcg/0.3 Ml Dose (P edison) 04/30/2021 Social History Tobacco Use Types Packs/Day Years Used Date Smoking Tobacco: Never Assessed Comments Unknown Sex and Gender Information Value Date Recorded Sex Assigned at Not on file Legal Sex Female 2:39 PM CDT Gender Identity Not on file Sexual Orientation Not on file Plan of Treatment Health Maintenance Due Date Last Done Comments Hepatitis C Virus (HCV) Screening 1954 Cologuard 1999 Colonoscopy 1999 Colorectal Cancer Screening 1999 Immunochemical Fecal Occult Blood 1999 Pneumococcal Immunization (5 0+ years) (1 of 1 - PCV) 2004 Zoster Immunization (2 of 2) 05/28/2021 04/02/2021 SARS-COV-2 Immunization ( season) 2024 04/30/2021, 09/19/2020, 08/29/2020 Influenza Immunization (#1) 2025 03/17/2020 Respiratory Syncytial Virus (RSV) Immunization [...]
--- OUTSIDE RECORDS SUMMARY | 2025-01-22 10:39 | XMS_ITS | Encounter Summary ---
Author Organization [facility] Address [address] [place] [address] Care Team Providers Care Tape Machine Tailer Name Role Phone Cinthya Jacinto MD Primary Care Provi orestes Encounter Details Date Type Department Care Team (Late st Contact Info) Description 10/04/2016 Chart Note [facility] Radiation Therapy [address] [place] [address] [place] [address] [place] [address] Social History Tobacco Use Types [...] Hospital Oncology and Hematology - [place] [address] [facility] [address] [place] [address] Karel Hines MD [address] [facility] [address] [place] [address] documented as of this encounter Visit Diagnoses Not on filedocumented in this encounter Care Teams Tape Machine Tailer Relationship Specialty Start Date End Date Cinthya Jacinto MD [address] [place] [phone] PCP - General Family Practice 07/12/18 documented as of this encounter
--- OUTSIDE RECORDS SUMMARY | 2025-01-22 10:39 | XMS_ITS | Clinical Summary ---
Author Organization [facility] Address [address] [place] [address] Care Team Providers Care Television Mechanic Name Role Phone Cinthya Jacinto MD Primary Care Provi orestes Allergies No known active allergies Medications calcium as carbonate (CALTRATE) 1,500 mg (600 mg elemental) Tablet Take 600 mg by mouth 2 times daily. Active anastrozole (ARIMIDEX) 1 mg tabletIndicati ons:Malignant neoplasm of upper-outer quadrant of right breast in female, estrogen receptor positive (CMS/HCC),Estr ogen receptor positive take 1 tablet by mouth every day 90 Tablet 3 3 Active alendronate (FOSAMAX) 35 mg tablet TAKE 1 TAB BY MOUTH EVERY 7 DAYS. EMPTY STOMACH BEFORE OTHER MEDS,W 8OZ OF WATER, STAY UPRIGHT 30MIN 12 Tablet 1 5 Active alendronate (FOSAMAX) 35 mg tablet Take 1 Tablet (35 mg) by mouth every 7 days. empty stomach before other meds,with 8oz of water, stay upright 30 min 4 Tablet 5 5 01/14/20 25 Discontinued Active Problems Problem Noted Date Diagnosed Date History of external beam radiation therapy 01/16 Aromatase inhibitor use 01/16/2018 Estrogen receptor positive 01/16/2018 Malignant neoplasm of upper- outer quadrant of right breast in female, estrogen receptor positive 10/07/2016 Tobacco use 10/07/2016 Encounters Date Type Department Care Team Description 01/15/2025 External Device Data STL ABSTRACTION Provider, Abstract 01/15/2025 External Device Data STL ABSTRACTION Provider, Abstract 01/11/2025 Refill [facility] Oncology and Hematology - [place] [address] [place] [address] Karel Hines MD 12/24/2024 External Device Data STL ABSTRACTION Provider, Abstract 12/05/2024 Orders Only [facility] Oncology and Hematology - [place] [address] [place] [address] Karel Hines MD 12/03/2024 External Device Data STL ABSTRACTION Provider, [...] Comments Blood Pressure 146/100 08/02/2024 9:55 AM HEATER MECHANIC Pulse 65 08/02/2024 9:51 AM HEATER MECHANIC Temperature 36.3 C (97.4 F) 08/02/2024 9:51 AM HEATER MECHANIC Respiratory Rate 16 08/02/2024 9:51 AM HEATER MECHANIC Oxygen Saturation 97% 08/02/2024 9:51 AM HEATER MECHANIC Inhaled Oxygen Concentration - - Weight 70.6 kg (155 lb 9.6 oz) 08/02/2024 9:51 A M HEATER MECHANIC Height 170.2 cm (5' 7) 01/27/2022 10:30 AM CDT Body Mass Index 24.37 01/27/2022 10:30 AM CDT Plan of Treatment Upcoming Encounters Date Type Department Care Team (Late st Contact Info) Description 01/29/2025 1:00 PM CDT Office Visit [facility] Oncology and Hematology - [place] [address] [place] [address] Karel Hines MD [address] [facility] [address] [place] [address] Health Maintenance Due Date Last Done Comments DTAP/TDAP/TD VACCINES (1 - Tdap) 1973 PNEUMOCOCCAL VACCINE 50+ YEA RS (1 of 2 - PCV) 1973 COLORECTAL SCREENING 1999 Colorectal Cancer Screening 1999 FIT-DNA Q 3 years 1999 FIT/FOBT Q 1 year 1999 Flex Sig/CT Colonography Q 5 years 1999 ZOSTER VACCINE (1 of 2) 2004 OSTEOPOROSIS SCREENING 2019 COVID-19 Vaccine (2 - 2023-2 5 season) 2024 04/30/2021 Medicare Advantage (MD) Preventative Visit/Annual Wellness Visit 07/03/2024 INFLUENZA VACCINE (#1) 2025 BREAST CANCER SCREENING 12/05/2025 12/06/19 25, 06/04/2024, 03/26/2024, Additional history exists RSV VACCINE (60+ or ) (1 - 1-dose 75+ series) 2029 Procedures Procedure Name Priority Date/Time Associated Diagnosis Comments MAMMO DIAGNOSTIC UNI LEFT W OR WO CAD Routine 12/05/2024 12:59 PM CDT from Last 3 Months Results * MAMMO DIAGNOSTIC UNI LEFT W OR WO CAD (12/05/2024 12:59 PM CDT) Anatomical Region Laterality Modality Breast Left Mammography Karel Hines MD MAMMO ORDERABLES Final Result from Last 3 Months Insurance [employer] PPO [facility] AETNA O MCR Care Teams Television Mechanic Relationship Specialty Start Date End Date Cinthya Jacinto MD [address] [place] [id number] PCP - General Family Practice 07/12/18
--- OUTSIDE RECORDS SUMMARY | 2025-01-22 10:39 | XMS_ITS | Clinical Summary ---
Author Organization [facility] Address [address] [place] [address] Care Team Providers Care Jig Hand Name Role Phone Unavailable Primary Care Provider Unavailabl e Source Comments [facility],non-owned Affiliates and Associated Physician Practices is amultiple site organization consisting of ambulatory clinics and hospital sitesin [place], [place], [place] and [place]. This disclosure is being madepursuant to the Care Everywhere program and may not contain all information available regarding this patient. Last updated 18.[facility] [employer] Social History Tobacco Use Types Packs/Day Years Used Date Smoking Tobacco: Never Assessed Comments Unknown Sex and Gender Information Value Date Recorded Sex Assigned at Not on file Legal Sex Female 5:44 PM DEPARTMENT COORDINATOR Gender Identity Not on file Sexual Orientation Not on file Last Filed Vital Signs Vital Sign Reading Time Taken Comments Blood Pressure - - Pulse - - Temperature - - Respiratory Rate - - Oxygen Saturation - - Inhaled Oxygen Concentration - - Weight 68 kg (150 lb) 08/16/2016 8:46 AM DEPARTMENT COORDINATOR Height 170.2 cm (5' 7) 08/16/2016 8:46 AM DEPARTMENT COORDINATOR Body Mass Index 23.49 08/16/2016 8:46 AM DEPARTMENT COORDINATOR Plan of Treatment Health Maintenance Due Date [...] season) 2024 DEPRESSION SCREENING 07/03/2024 INFLUENZA VACCINE (#1) 2025 Respiratory Syncytial Virus (RSV) Vaccine Pt: [...] patient's age to complete this topic [facility]
[2025-01-22 10:41] LABS: Hematocrit 45.6 % (37.0-47.0); Hemoglobin 15.4 g/dL (12.0-15.0); Immature Granulocyte Percent A 0.2 % (0-0.5); Lymphocytes Absolute Auto 1.99 K/mm3 (0.9-3.2); Mean Corpuscular HGB Conc 33.8 g/dl (32-36); Mean Corpuscular Hemoglobin 31.4 pg (26-34); Mean Corpuscular Volume 92.9 fl (80-100); Nucleated Red Blood Cells Absolute Auto 0.000 K/mm3 (0.0-0.012); Nucleated Red Blood Cells Perc 0.0 % (0.0-0.2); Platelet Count Result 365 k/mm3 (150-375); Red Blood Count 4.91 M/mm3 (4.2-5.4); White Blood Count 5.3 K/mm3 (4.5-10.0)
[2025-01-22 12:23] LABS: Alanine Aminotransferase 16 U/L (6-35); Albumin Level 4.4 g/dL (3.5-5.1); Alkaline Phosphatase 70 U/L (38-126); Anion Gap 10 mmol/L (4-12); Aspartate Amino Transferase 36 U/L (14-36); Bilirubin,Total 0.6 mg/dL (0.2-1.3); Blood Urea Nitrogen 16 mg/dL (7-17); Calcium 9.7 mg/dL (8.4-10.2); Carbon Dioxide 28 mmol/L (22-30); Chloride 101 mmol/L (98-107); Estimated Glomerular Filt Rate > 60; Glucose 99 mg/dL (65-110); Potassium 4.2 mmol/L (3.4-5.0); Sodium 139 mmol/L (137-145); Total Protein 8.1 g/dL (6.3-8.2)
== END 2025-01-22 10:29 | disposition home or self-care (01) ==
PROVIDERS: PCP Family Medicine; Visit Provider Internal Medicine Hematology & Oncology
DX: C50.411 Malignant neoplasm of upper-outer quadrant of right female breast (principal); Z17.0 Estrogen receptor positive status [ER+]
CPT/HCPCS: 36415; 80053; 85025; 86300

== ENCOUNTER 2025-02-13 11:51 | Outpatient (CLI) | payer MEDICARE, SELFPAY ==
--- OUTSIDE RECORDS SUMMARY | 2025-02-13 07:41 | XMS_ITS | Clinical Summary ---
Author Organization [facility] Address [address] [place] [address] Care Team Providers Care Staffing Consultant Name Role Phone Janett Silva MD Primary Care Provider [phone] Allergies No known active allergies Medications calcium [...] 06/05/2023 Active alendronate (FOSAMAX) 35 mg tablet TAKE 1 TAB BY MOUTH EVERY 7 DAYS. EMPTY STOMACH BEFORE OTHER MEDS,W 8OZ OF WATER, STAY UPRIGHT 30MIN 12 Tablet 1 01/13/2025 Active Active Problems Problem Noted Date Diagnosed Date History of external beam radiation therapy 01/16 Aromatase inhibitor use 01/16/2018 Estrogen receptor positive 01/16/2018 Malignant neoplasm of upper- outer quadrant of right breast in female, estrogen receptor positive 10/07/2016 Tobacco use 10/07/2016 Encounters Date Type Department Care Team Description 02/11/2025 External Device Data STL ABSTRACTION Provider, Abstract 02/05/2025 External Device Data STL ABSTRACTION Provider, Abstract 01/29/2025 1:00 PM CDT Office Visit [facility] Oncology and Hematology - [place] [address] [place] [address] Karel Hines MD Malignant neoplasm of upper-outer quadrant of right breast in female, estrogen receptor positive (CMS/HCC) (Primary Dx) 01/23/2025 Orders Only [facility] Oncology and Hematology - [place] [address] [place] [address] Karel Hines MD 01/22/2025 Orders Only [facility] Oncology and Hematology - [place] [address] [place] [address] Karel Hines MD 01/15/2025 External Device Data STL ABSTRACTION Provider, Abstract 01/15/2025 External Device Data STL ABSTRACTION Provider, Abstract 01/11/2025 Refill [facility] Oncology and Hematology - [place] [address] [place] [address] Karel Hines MD 12/24/2024 External Device Data STL ABSTRACTION Provider, Abstract 12/05/2024 Orders Only [facility] Oncology and Hematology - [place] [address] [place] [address] Karel Hines MD 12/03/2024 External Device Data [...] Sign Reading Time Taken Comments Blood Pressure 113/73 01/29/2025 1:00 PM CDT Pulse 51 01/29/2025 1:00 PM CDT Temperature 36.3 C (97.4 F) 01/29/2025 1:00 PM CDT Respiratory Rate 15 01/29/2025 1:00 PM CDT Oxygen Saturation 92% 01/29/2025 1:00 PM CDT Inhaled Oxygen Concentration - - Weight 73.2 kg (161 lb 6.4 oz) 01/29/2025 1:00 P M CDT Height 170.2 cm (5' 7) 01/27/2022 10:30 AM CDT Body Mass Index 25.28 01/27/2022 10:30 AM CDT Plan of Treatment Upcoming Encounters Date Type Department Care Team (Late st Contact Info) Description 08/11/2025 1:00 PM SPORTS WRITER Office Visit [facility] Oncology and Hematology - [place] [address] [facility] [address] [place] [address] Karel Hines MD [address] [facility] [employer] [address] [place] [address] Health Maintenance Due Date Last Done Comments Pre-Diabetes and Diabetes Screening 1954 DTAP/TDAP/TD VACCINES (1 - Tdap) 1973 PNEUMOCOCCAL VACCINE 50+ YEA RS (1 of 2 - PCV) 1973 COLORECTAL SCREENING 1999 Colorectal Cancer Screening 1999 FIT-DNA Q 3 years 1999 FIT/FOBT Q 1 year 1999 Flex Sig/CT Colonography Q 5 years 1999 ZOSTER VACCINE (1 of 2) 2004 OSTEOPOROSIS SCREENING 2019 COVID-19 Vaccine (2 - 2023-2 5 season) 2024 04/30/2021 INFLUENZA VACCINE (#1) 2025 BREAST CANCER SCREENING 12/05/2025 12/06/19 25, 06/04/2024, 03/26/2024, Additional history exists RSV VACCINE (60+ or ) (1 - 1-dose 75+ series) 2029 Procedures Procedure Name Priority Date/Time Associated Diagnosis Comments CHG CA 15 3 Routine 01/22/2025 2:43 PM CDT CBC WITH DIFFERENTIAL Routine 01/22/2025 2:06 PM CDT COMPREHENSIVE METABOLIC PANEL Routine 01/22/2025 12:55 PM CDT MAMMO DIAGNOSTIC UNI LEFT W OR WO CAD Routine 12/05/2024 12:59 PM CDT from Last 3 Months Results * CHG CA 15 3 (01/22/2025 2:43 PM CDT) us Karel Hines MD CHG - LABORATORY Final Result * CBC WITH DIFFERENTIAL (01/22/2025 2:06 PM CDT) Blood us Karel Hines MD HEMATOLOGY ORDERABLES Final Res ult * COMPREHENSIVE METABOLIC PANEL (01/22/2025 12:55 PM CDT) Blood us Karel Hines MD CHEMISTRY ORDERABLES Final Resu lt * MAMMO DIAGNOSTIC UNI LEFT W OR WO CAD (12/05/2024 12:59 PM CDT) Anatomical Region Laterality Modality Breast Left Mammography us Karel Hines MD MAMMO ORDERABLES Final Result from Last 3 Months Insurance [facility] AETNA PPO MCR Care Teams Staffing Consultant Relationship Specialty Start Date End Date Janett Silva MD [address] [place] [address] PCP - General Family Practice 01/29/25
--- OUTSIDE RECORDS SUMMARY | 2025-02-13 07:41 | XMS_ITS | Clinical Summary ---
Author Organization [facility] Address [address] [place] [address] Care Team Providers Care Faculty Support Coordinator Name Role Phone Unavailable Primary Care Provider Unavailabl e Source Comments [facility],non-owned Affiliates and Associated Physician Practices is amultiple site organization consisting of ambulatory clinics and hospital sitesin [place] and [place]. This disclosure is being madepursuant to the Care Everywhere program and may not contain all information available regarding this patient. Last updated 18.[facility] [employer] Social History Tobacco Use Types Packs/Day Years Used Date Smoking Tobacco: Never Assessed Comments Unknown Sex and Gender Information Value Date Recorded Sex Assigned at Not on file Legal Sex Female 5:44 PM LAB ASSISTANT Gender Identity Not on file Sexual Orientation Not on file Last Filed Vital Signs Vital Sign Reading Time Taken Comments Blood Pressure - - Pulse - - Temperature - - Respiratory Rate - - Oxygen Saturation - - Inhaled Oxygen Concentration - - Weight 68 kg (150 lb) 08/16/2016 8:46 AM LAB ASSISTANT Height 170.2 cm (5' 7) 08/16/2016 8:46 AM LAB ASSISTANT Body Mass Index 23.49 08/16/2016 8:46 AM LAB ASSISTANT Plan of Treatment Health Maintenance Due Date [...] patient's age to complete this topic [facility]
--- OUTSIDE RECORDS SUMMARY | 2025-02-13 07:41 | XMS_ITS | Clinical Summary ---
Author Organization [facility] Address [address] [place] [address] Care Team Providers Care Tractor Trailer Mechanic Name Role Phone Unavailable Primary Care Provider [...]
--- OUTSIDE RECORDS SUMMARY | 2025-02-13 07:41 | XMS_ITS | Encounter Summary ---
Author Organization [facility] Address [address] [place] [address] Care Team Providers Care Hris Administrator Name Role Phone Janett Silva MD Primary Care Provider [phone] Encounter Details Date Type Department Care Team (Late Contact Info) Description 10/04/2016 Chart Note [facility] Radiation Therapy [address] [place] [address] [place] [address] [place] [address] Social History Tobacco Use Types Packs/Day Years Used Date Smoking Tobacco: Never Assessed Comments Unknown Sex and Gender Information Value Date Recorded Sex Assigned at Not on file Legal Sex Female 11:00 AM CDT Gender Identity Not on file Sexual Orientation Not on file documented as of this encounter Plan of Treatment Upcoming Encounters Date Type Department Care Team (Late Contact Info) Description 08/11/2025 1:00 PM DISCOVERY MANAGER Office Visit [facility] Oncology and Hematology - [place] [address] [facility] [address] [place] [address] Karel Hines MD [address] [facility] [address] [place] [address] documented as of this encounter Visit Diagnoses Not on filedocumented in this encounter Care Teams Hris Administrator Relationship Specialty Start Date End Date Janett Silva MD [address] [place] [address] PCP - General Family Practice 01/29/25 documented as of this encounter
--- OUTSIDE RECORDS SUMMARY | 2025-02-13 07:41 | XMS_ITS | Encounter Summary ---
Author Organization [facility] Address [address] [place] [address] Care Team Providers Care Java Websphere Developer Name Role Phone Janett Silva MD Primary Care Provider [phone] Encounter Details Date Type Department Care Team (Late st Contact Info) Description 02/11/2025 External Device Data STL ABSTRACTION [...] st Contact Info) Description 08/11/2025 1:00 PM CUSTOMER SOLUTIONS SUPERVISOR Office Visit [facility] Oncology and Hematology - Anthony [address] [facility] [address] [place] [address] Karel Hines MD [address] [facility] [address] [place] [address] documented as of this encounter Visit Diagnoses Not on filedocumented in this encounter Care Teams Java Websphere Developer Relationship Specialty Start Date End Date Janett Silva MD [address] [place] [phone] PCP - General Family Practice 01/29/25 documented as of this encounter
[2025-02-13 08:36] LABS: Hemoglobin A1C 5.9 % (<5.7)
--- OUTSIDE RECORDS SUMMARY | 2025-02-13 12:00 | XMS_ITS | Clinical Summary ---
Author Organization [facility] Address [address] [place] [address] Care Team Providers Care Centrifugal Operator Name Role Phone Unavailable Primary Care Provider [...]
--- OUTSIDE RECORDS SUMMARY | 2025-02-13 12:00 | XMS_ITS | Clinical Summary ---
Author Organization [facility] Address [address] [place] [address] Care Team Providers Care Software Designer Name Role Phone Unavailable Primary Care Provider Unavailabl e Source Comments [facility],non-owned Affiliates and Associated Physician Practices is amultiple site organization consisting of ambulatory clinics and hospital sitesin [place], [place] and [place]. This disclosure is being madepursuant to the Care Everywhere program and may not contain all information available regarding this patient. Last updated 18.[facility] [employer] Social History Tobacco Use Types Packs/Day Years Used Date Smoking Tobacco: Never Assessed Comments Unknown Sex and Gender Information Value Date Recorded Sex Assigned at Not on file Legal Sex Female 5:44 PM PIPE FITTER Gender Identity Not on file Sexual Orientation Not on file Last Filed Vital Signs Vital Sign Reading Time Taken Comments Blood Pressure - - Pulse - - Temperature - - Respiratory Rate - - Oxygen Saturation - - Inhaled Oxygen Concentration - - Weight 68 kg (150 lb) 08/16/2016 8:46 AM PIPE FITTER Height 170.2 cm (5' 7) 08/16/2016 8:46 AM PIPE FITTER Body Mass Index 23.49 08/16/2016 8:46 AM PIPE FITTER Plan of Treatment Health Maintenance Due Date [...] patient's age to complete this topic [facility]
--- OUTSIDE RECORDS SUMMARY | 2025-02-13 12:00 | XMS_ITS | Encounter Summary ---
Author Organization [facility] Address [address] [place] [address] Care Team Providers Care Commercial Interior Designer Name Role Phone Janett Silva MD Primary Care Provider [phone] Encounter Details Date Type Department Care Team (Late Contact Info) Description 10/04/2016 Chart Note [facility] Radiation Therapy [address] [place] [address] [place] [address] [place] [address] Social History Tobacco Use Types [...] (Late Contact Info) Description 08/11/2025 1:00 PM PSYCHOLOGIST CHIEF Office Visit [facility] Oncology and Hematology - [place] [address] [facility] [address] [place] [address] Karel Hines MD [address] [facility] [address] [place] [address] documented as of this encounter Visit Diagnoses Not on filedocumented in this encounter Care Teams Commercial Interior Designer Relationship Specialty Start Date End Date Janett Silva MD [address] [place] [address] PCP - General Family Practice 01/29/25 documented as of this encounter
--- OUTSIDE RECORDS SUMMARY | 2025-02-13 12:00 | XMS_ITS | Encounter Summary ---
Author Organization [facility] Address [address] [place] [address] Care Team Providers Care Bleacher Operator Name Role Phone Janett Silva MD Primary Care Provider [phone] Encounter Details Date Type Department Care Team [...] st Contact Info) Description 08/11/2025 1:00 PM FOREIGN FOOD COOK SPECIALTY Office Visit [facility] Oncology and Hematology - [place] [address] [facility] [address] [place] [address] Karel Hines MD [address] [facility] [address] [place] [address] documented as of this encounter Visit Diagnoses Not on filedocumented in this encounter Care Teams Bleacher Operator Relationship Specialty Start Date End Date Janett Silva MD [address] [place] [phone] PCP - General Family Practice 01/29/25 documented as of this encounter
--- OUTSIDE RECORDS SUMMARY | 2025-02-13 12:00 | XMS_ITS | Clinical Summary ---
Author Organization [facility] Address [address] [place] [address] Care Team Providers Care Regional Climate Change Analyst Name Role Phone Janett Silva MD Primary Care Provider [phone] Allergies No known active allergies Medications calcium [...] and Hematology - Anthony [address] [place] [address] Karel Hines MD Malignant neoplasm of upper-outer quadrant of right breast in female, estrogen receptor positive (CMS/HCC) (Primary Dx) 01/23/2025 Orders Only [facility] Oncology and Hematology - [place] [address] [place] [address] Karel Hines MD 01/22/2025 Orders Only [facility] Oncology and Hematology - Anthony [address] [place] [address] Karel Hines MD 01/15/2025 External Device Data STL ABSTRACTION Provider, Abstract 01/15/2025 External Device Data STL ABSTRACTION Provider, Abstract 01/11/2025 Refill [facility] Oncology and Hematology - [place] [address] [place] [address] Karel Hines MD 12/24/2024 External Device Data STL ABSTRACTION Provider, Abstract 12/05/2024 Orders Only [facility] Oncology and Hematology - Anthony [address] [place] [address] Karel Hines MD 12/03/2024 External Device Data [...] st Contact Info) Description 08/11/2025 1:00 PM FISHING VESSEL DECKHAND Office Visit [facility] Oncology and Hematology - [place] [address] [facility] [address] [place] [address] Karel Hines MD [address] [facility] [employer] [address] [place] [address] Health Maintenance Due Date Last [...] Final Result from Last 3 Months Insurance [facility] [employer] PPO MCR Care Teams Regional Climate Change Analyst Relationship Specialty Start Date End Date Janett Silva MD [address] [place] [phone] PCP - General Family Practice 01/29/25
[2025-02-13 12:38] LABS: Cholesterol 228 mg/dL (0-200); HDL Direct 70 mg/dL; Triglycerides 75 mg/dL (<150)
== END 2025-02-13 11:52 | disposition home or self-care (01) ==
PROVIDERS: PCP Family Medicine; Visit Provider Student in an Organized Health Care Education/Training Program
DX: R79.89 Other specified abnormal findings of blood chemistry (principal); C50.919 Malignant neoplasm of unspecified site of unspecified female breast; R73.03 Prediabetes; Z13.220 Encounter for screening for lipoid disorders
CPT/HCPCS: 36415; 80061; 83036

== ENCOUNTER 2025-04-01 00:26 | Day surgery (SDC) | payer MEDICARE, SELFPAY ==
[2025-03-17 14:54] VITALS: BMI 24.3
--- OUTSIDE RECORDS SUMMARY | 2025-04-01 00:29 | XMS_ITS | Encounter Summary ---
Author Organization [facility] Address [address] [place] [address] Care Team Providers Care Sanitation Director Name Role Phone Janett Silva MD Primary Care Provider [phone] Encounter Details Date Type Department Care Team (Late Contact Info) Description 10/04/2016 Chart Note [facility] Radiation Therapy [address] [place] [address] [place] [address] [place] [address] Social History Tobacco Use Types [...] (Late Contact Info) Description 08/11/2025 1:00 PM MARSH BUGGY OPERATOR Office Visit [facility] Oncology and Hematology - [place] [address] [facility] [address] [place] [address] Karel Hines MD [address] [facility] [address] [place] [address] documented as of this encounter Visit Diagnoses Not on filedocumented in this encounter Care Teams Sanitation Director Relationship Specialty Start Date End Date Janett Silva MD [address] [place] [address] PCP - General Family Practice 01/29/25 documented as of this encounter
--- OUTSIDE RECORDS SUMMARY | 2025-04-01 00:29 | XMS_ITS | Clinical Summary ---
Author Organization [facility] Address [address] [place] [address] Care Team Providers Care Die Keeper Name Role Phone Unavailable Primary Care Provider [...] Zoster Immunization (2 of 2) 05/28/2021 04/02/2021 Influenza Immunization (#1) 2025 03/17/2020 SARS-COV-2 Immunization ( - season) 2025 04/30/2021, 09/19/2020, 08/29/2020 Respiratory Syncytial Virus (RSV) Immunization (Adult) (1 [...]
--- OUTSIDE RECORDS SUMMARY | 2025-04-01 00:29 | XMS_ITS | Clinical Summary ---
Author Organization [facility] Address [address] [place] [address] Care Team Providers Care Jet Pilot Name Role Phone Unavailable Primary Care Provider Unavailabl e Source Comments [facility],non-owned Affiliates and Associated Physician Practices is amultiple site organization consisting of ambulatory clinics and hospital sitesin [place], [place], [place] and [place]. This disclosure is being madepursuant to the Care Everywhere program and may not contain all information available regarding this patient. Last updated 18.[facility] Social History Tobacco Use Types Packs/Day Years Used Date Smoking Tobacco: Never Assessed Comments Unknown Sex and Gender Information Value Date Recorded Sex Assigned at Not on file Legal Sex Female 5:44 PM CRIBBER Gender Identity Not on file Sexual Orientation Not on file Last Filed Vital Signs Vital Sign Reading Time Taken Comments Blood Pressure - - Pulse - - Temperature - - Respiratory Rate - - Oxygen Saturation - - Inhaled Oxygen Concentration - - Weight 68 kg (150 lb) 08/16/2016 8:46 AM CRIBBER Height 170.2 cm (5' 7) 08/16/2016 8:46 AM CRIBBER Body Mass Index 23.49 08/16/2016 8:46 AM CRIBBER Plan of Treatment Health Maintenance Due Date [...] 2004 ZOSTER VACCINE (1 of 2) 2004 DEPRESSION SCREENING 07/03/2024 COVID-19 VACCINE (1 - 2023-2 5 season) 2025 INFLUENZA VACCINE (#1) 2025 Respiratory Syncytial Virus [...] patient's age to complete this topic [facility]
--- OUTSIDE RECORDS SUMMARY | 2025-04-01 00:29 | XMS_ITS | Clinical Summary ---
Author Organization [facility] Address [address] [place] [address] Care Team Providers Care Ged Teacher Name Role Phone Janett Silva MD Primary Care Provider [phone] Allergies No known active allergies Medications calcium [...] Encounters Date Type Department Care Team Description 03/18/2025 External Device Data STL ABSTRACTION Provider, Abstract 03/04/2025 External Device Data STL ABSTRACTION Provider, Abstract 02/19/2025 External Device Data STL ABSTRACTION Provider, Abstract 02/11/2025 External Device Data STL ABSTRACTION Provider, Abstract 02/05/2025 External Device Data STL ABSTRACTION Provider, Abstract 01/29/2025 1:00 PM CDT Office Visit [facility] Oncology and Hematology - [place] [address] [place] [address] Karel Hines MD Malignant neoplasm of upper-outer quadrant of right breast in female, estrogen receptor positive (CMS/HCC) (Primary Dx) 01/23/2025 Orders Only [facility] Oncology and Hematology [facility] [address] [place] [address] Karel Hines MD 01/22/2025 Orders Only [facility] Oncology and Hematology [facility] [address] [place] [address] Karel Hines MD 01/15/2025 External Device Data STL ABSTRACTION Provider, Abstract 01/15/2025 External Device Data STL ABSTRACTION Provider, Abstract 01/11/2025 Refill [facility] Oncology and Hematology [facility] [address] [place] [address] Karel Hines MD from Last 3 Months Family History Medical [...] st Contact Info) Description 08/11/2025 1:00 PM FORESTRY PATROLMAN Office Visit [facility] Oncology and Hematology [facility] [address] [facility] [address] [place] [address] Karel Hines MD [address] [facility] [address] [place] [address] Health Maintenance Due Date Last [...] 2004 OSTEOPOROSIS SCREENING 2019 INFLUENZA VACCINE (#1) 2025 COVID-19 Vaccine (2 - 2024-2 6 season) 2025 04/30/2021 BREAST CANCER SCREENING 12/05/2025 12/06/19 25, 06/04/2024, [...] 12:59 PM CDT from Last 3 Months or Most Recently Relevant to Health Maintenance Results * CHG CA 15 3 (01/22/2025 [...] Most Recently Relevant to Health Maintenance Insurance [facility] Care Teams Ged Teacher Relationship Specialty Start Date End Date Janett Silva MD [address] [place] [phone] PCP - General Family Practice 01/29/25
[2025-04-01 07:59] VITALS: BP 133/93; PULSE 91; RESP 18; TEMP 36.1; O2SAT 99
[2025-04-01] MEDS: LACTATED RINGERS 1,000 ML 150 ML IV CONT (08:09)
--- NOTE | 2025-04-01 08:13 | WPDANESEPPF ---
Anes - Initial Pre Proc Eval Procedure: Operation Date: 04/01/25 09:00 Proposed Procedures p Screening Colonoscopy - Berhane Varner MD Date/Time: 04/01/25 08:13 Surgeon: Berhane Varner MD Pre Op Diagnosis: Personal history of colon polyps, unspecified Patient Data Age: 69 Gender: F Height: 1.7 m Weight: 69.9 kg Last Vital Signs Temp 97 F L 04/01/25 07:59 Pulse 91 04/01/25 07:59 Resp 18 04/01/25 07:59 BP 133/93 H 04/01/25 07:59 Pulse Ox 99 04/01/25 07:59 O2 Del Method Room Air 04/01/25 07:59 Allergies Allergy/AdvReac Type Severity Reaction Status Date / Time No Known Allergies Allergy Verified 04/01/25 07:58 Home Medications ?Medication ?Instructions ?Recorded ?Confirmed ?Type calcium 600 mg (as 1 cap PO BID 03/28/24 04/01/25 History carbonate)-vitamin D3 10 mcg (400 unit) capsule alendronate 35 mg tablet 35 mg PO WEEKLY 02/05/25 04/01/25 History Patient hx anesthesia problems: none Family hx anesthesia problems: none Results Review: All pre-operative results and documents have been reviewed as part of the pre-operative evaluation. FOR[facility]LY [facility], [facility] Past Medical History Medical History Prediabetes Breast cancer Surgical History Surgical History History of total right hip replacement 2016 Hx of removal of ovary 1990 History of lumpectomy 2016 Family History Family History Mother Family history of thyroid disease Father Family history of blood dyscrasia Social History Social History Smoking packs per day: 0.5 Smoking cigarettes per day: 10.0 Years smoked: 25 Smoking pack-years: 12.50 Smoking status: Former smoker (quit smoking last March- used to smoke less than a half a pack per day at height, quit many times. ) Tobacco type: cigarettes Second hand tobacco smoke exposure: Yes Smoking end date: 03/03/24 Additional smoking assessment comments: DENIES ANY FORM OF TOBACCO USR Alcohol intake: never Alcohol use details: occasional Substance use: never Substance use type: does not use Current Housing: Decline to Answer Concerned About Future Housing: No Difficulty Paying Gas/Electric Bills: No Difficulty Paying for Meds: No Currently Unemployed: No Education: Don't Know Difficulty w/ Childcare or Family Care: No Living arrangements: alone Occupation/Education: retired Additional occupation/education comments: [id number] Gender identity (if verbalized by the patient): Female Spiritual care concerns: No Anes - Eval Final PreProcedure Day of Procedure 04/01/25 08:13 Patient weight: normal Lungs: normal air movement Airway: Mallampati scale class II Neurological: alert and oriented Last oral intake: >/= 8 hours ASA classification: II Emergent: no Anesthetic plan: proceed Anesthesia type and monitoring: general GIVS and standard monitoring Results Review: All pre-operative results and documents have been reviewed as part of the pre-operative evaluation. Pre DM, hx of breast ca, s/p lumpectomy R. Active w water aerobics 5 x weekly, no cp or sob. Informed Consent: The patient's anesthetic plan and its attendant risks and benefits were discussed with the patient/family/POA. Questions were solicited and answers provided to the satisfaction of the patient/family/POA.
--- NOTE | 2025-04-01 08:52 | PM.HPGS ---
History of Present Illness History of Present Illness Consent: Risks, benefits, and alternatives have been discussed and questions answered. Patient agrees to proceed with procedure. Chief complaint: Personal history of colon polyps, unspecified Narrative: Mitch Roche is a 69 year old female with colon polyp about 6 years ago Review of Systems Review of Systems: All systems reviewed & are unremarkable except as noted in HPI and below PMFSH Past Medical History Medical History (Updated 04/01/25 @ 08:53 by Berhane Varner MD) Colon polyp Prediabetes Breast cancer Surgical History Surgical History History of total right hip replacement 2016 Hx of removal of ovary 1989 History of lumpectomy 2016 Family History Family History Mother Family history of thyroid disease Father Family history of blood dyscrasia Social History Social History Smoking packs per day: 0.5 Smoking cigarettes per day: 10.0 Years smoked: 25 Smoking pack-years: 12.50 Smoking status: Former smoker (quit smoking last March- used to smoke less than a half a pack per day at height, quit many times. ) Tobacco type: cigarettes Second hand tobacco smoke exposure: Yes Smoking end date: 03/03/24 Additional smoking assessment comments: DENIES ANY FORM OF TOBACCO USR Alcohol intake: never Alcohol use details: occasional Substance use: never Substance use type: does not use Current Housing: Decline to Answer Concerned About Future Housing: No Difficulty Paying Gas/Electric Bills: No Difficulty Paying for Meds: No Currently Unemployed: No Education: Don't Know Difficulty w/ Childcare or Family Care: No Living arrangements: alone Occupation/Education: retired Additional occupation/education comments: [id number] Gender identity (if verbalized by the patient): Female Spiritual care concerns: No Meds Home Medications and Allergies Home Medications ?Medication ?Instructions ?Recorded ?Confirmed ?Type calcium 600 mg (as 1 cap PO BID 03/28/24 04/01/25 History carbonate)-vitamin D3 10 mcg (400 unit) capsule alendronate 35 mg tablet 35 mg PO WEEKLY 02/05/25 04/01/25 History Allergies Allergy/AdvReac Type Severity Reaction Status Date / Time No Known Allergies Allergy Verified 04/01/25 07:58 Vital Signs Vital Signs - 24 hr 04/01/25 07:59 Temperature 97 F L Pulse Rate 91 Respiratory Rate 18 Blood Pressure 133/93 H Pulse Oximetry 99 Oxygen Delivery Room Air Exam Const: General: comfortable and no acute distress HENMT: Face/Nose/Sinus: Normal nares present Eyes: General: appearance normal, both eyes and all related structures Resp: Auscultation: clear to auscultation bilaterally Cardio: Rate: regular rate Rhythm: regular rhythm GI: Inspection: non-distended GI Palp: Yes Soft to palpation Skin: General skin exam: normal color Extrem: General: normal to inspection Psych: Mental Status: mental status grossly normal Assessment and Plan Assessment and plan (1) Colon polyp: Code(s): K63.5 - Polyp of colon Status: Acute Assessment and Plan: colonoscopy
--- NOTE | 2025-04-01 09:04 | S_PTH ---
PATIENT: Mitch Roche LOC: [facility]#:[id number] AGE/SX: 69/F ROOM: RE04/01/[address]: Berhane Varner MD : 1955 BED: DIS: 04/01/2025 SPEC #: [id number] RECD: 04/01/25 10:09 STATUS: SEKOU REMele #: [id number] CHRISTIANE: 04/01/25 09:[address]: Berhane Varner DEPT: [facility] Surgical RECD BY: Ilya Matthew ENTERED: 04/01/25 10:09 SP TYPE: Surgical OTHR DR: Janett SilvaMD Tissues: A - Colon Polypectomy Procedures: Hematoxylin and Eosin Stain Gross and Microscopic Level 4
[2025-04-01 09:08] VITALS: BP 117/70; PULSE 72; RESP 19; O2SAT 99
[2025-04-01 09:18] VITALS: BP 127/89; PULSE 71; RESP 19; O2SAT 100
[2025-04-01 09:28] VITALS: BP 132/87; PULSE 69; RESP 19; O2SAT 100
== END 2025-04-01 09:33 | disposition home or self-care (01) ==
PROVIDERS: PCP Family Medicine; Referring Provider Family Medicine; Visit Provider Internal Medicine Gastroenterology
PROC: 0DJD8ZZ Inspection of Lower Intestinal Tract, Via Natural or Artificial Opening Endoscopic (ICD-10-PCS; CPT 45378; principal; 2025-04-01 09:00)
DX: Z12.11 Encounter for screening for malignant neoplasm of colon (principal); D12.3 Benign neoplasm of transverse colon; K64.8 Other hemorrhoids; K57.30 Diverticulosis of large intestine without perforation or abscess without bleeding; R73.03 Prediabetes; Z79.83 Long term (current) use of bisphosphonates; Z98.890 Other specified postprocedural states; Z90.11 Acquired absence of right breast and nipple; Z87.891 Personal history of nicotine dependence; Z85.3 Personal history of malignant neoplasm of breast
CPT/HCPCS: 45385; 88305; J2003; J2704; J7120